=== PATIENT | female | born 1975 | race African-American/Black ===

== ENCOUNTER 2021-09-14 11:31 | Outpatient (REF) | payer OTHER, SELFPAY ==
[2021-09-14 12:47] LABS: MANUAL DIFF FLAG NO
[2021-09-14 13:22] LABS: Basophils Percent Auto 0.6 % (0-2); Eosinophils Absolute Auto 0.1 X10*3/uL (0.0-0.4); Eosinophils Percent Auto 2.4 % (0-4); Hemoglobin 13.5 g/dl (12.0-16.0); Lymphocytes Absolute Auto 1.5 X10*3/uL (1.2-4.9); Lymphocytes Percent Auto 45.7 % (20-40); Mean Corpuscular HGB Conc 32.1 g/dl (31.0-35.0); Mean Corpuscular Hemoglobin 27.7 pg (27.0-33.0); Mean Corpuscular Volume 86.1 fL (80.0-98.0); Mean Platelet Volume 10.2 fL (9.4-12.3); Monocytes Absolute Auto 0.3 X10*3/uL (0.1-1.2); Monocytes Percent Auto 9.2 % (2-11); Neutrophils Absolute Auto 1.4 x10*3/uL (2.0-8.3); Neutrophils Percent Auto 42.1 % (45-73); Platelet Count 261 X10*3/uL (160-400); Red Blood Count 4.88 X10*6/uL (4.20-5.50); White Blood Count 3.4 X10*3/uL (4.8-10.8)
[2021-09-14 13:32] LABS: Estimated Average Glucose 94 mg/dL; Hemoglobin A1c % 4.9 %
[2021-09-14 13:35] LABS: Anion Gap 8 (12-20); Blood Urea Nitrogen 10 mg/dL (9-16); C Reactive Protein 0.33 mg/dL (< or = 0.50); Calcium 9.2 mg/dL (8.4-10.2); Carbon Dioxide 27 mmol/L (22-29); Chloride 111 mmol/L (96-108); Cholesterol 129 mg/dL; Estimated Glomerular Filt Rate 52; Glucose Random 91 mg/dL (60-115); HDL Cholesterol 58 mg/dL; Iron 119 mcg/dL (30-160); LDL Cholesterol Calculated 53 mg/dl; Percent Iron Saturation 45 % (15-50); Potassium 4.2 mmol/L (3.3-5.1); Sodium 142 mmol/L (135-145); Total Iron Binding Capacity 263 mcg/dL (228-428); Triglycerides 93 mg/dL; Unsaturated Iron Binding 144 ug/dL
[2021-09-14 13:54] LABS: TSH reflex Free T4 1.04 uIU/mL (0.32-4.0); Vitamin D 25-OH Total 9.9 ng/mL (>30)
[2021-09-14 14:15] LABS: Vitamin B12 599 pg/mL (200-900)
[2021-09-14 14:27] LABS: Ferritin 172 ng/mL (10-250)
[2021-09-15 13:07] LABS: Calcium (PTHI) 8.6 mg/dL (8.6-10.2); PTHI 63 pg/mL (14-64)
[2021-09-18 00:01] LABS: Zinc 77 mcg/dL (60-130)
[2021-09-20 16:56] LABS: Vitamin A 39 mcg/dL (38-98)
== END 2021-09-14 11:32 | disposition home or self-care (01) ==
LOC: HO.LAB 11:31
PROVIDERS: PCP Internal Medicine; Referring Provider Internal Medicine; Visit Provider Physician Assistant Surgical
DX: E66.9 Obesity, unspecified (principal); D72.819 Decreased white blood cell count, unspecified; F17.210 Nicotine dependence, cigarettes, uncomplicated; Z68.41 Body mass index [BMI] 40.0-44.9, adult; Z90.3 Acquired absence of stomach [part of]; Z98.84 Bariatric surgery status
CPT/HCPCS: 36415; 80048; 80061; 82306; 82607; 82728; 82746; 83036; 83540; 83970; 84425; 84443; 84590; 84630; 85025; 86140; 99212

== ENCOUNTER → 2021-10-26 07:55 | Outpatient (BNVA) | payer OTHER, SELFPAY | PROVIDERS: PCP Internal Medicine; Visit Provider Physician Assistant Surgical | DX: E66.9 Obesity, unspecified (principal); Z98.84 Bariatric surgery status | CPT/HCPCS: Q3014 ==

== ENCOUNTER 2022-05-10 15:01 | Emergency (ER) | payer OTHER, SELFPAY ==
[2022-05-10 16:37] VITALS: BP 130/109; PULSE 93; RESP 20; TEMP 39.3; O2SAT 96; BMI 35.2
[2022-05-10 17:04] LABS: Basophils Percent Auto 0.2 % (0-2); Eosinophils Percent Auto 0.2 % (0-4); Hematocrit 39.9 % (37.0-47.0); Hemoglobin 13.2 g/dl (12.0-16.0); Imm Gran Abs Auto 0.01 X10*3/uL (0.00-0.03); Imm Gran Pct Auto 0.2 % (0.0-0.4); Lymphocytes Absolute Auto 1.1 X10*3/uL (1.2-4.9); Lymphocytes Percent Auto 23.9 % (20-40); MANUAL DIFF FLAG SCAN; Mean Corpuscular HGB Conc 33.1 g/dl (31.0-35.0); Mean Corpuscular Hemoglobin 27.5 pg (27.0-33.0); Mean Corpuscular Volume 83.1 fL (80.0-98.0); Mean Platelet Volume 9.7 fL (9.4-12.3); Monocytes Absolute Auto 0.4 X10*3/uL (0.1-1.2); Monocytes Percent Auto 9.1 % (2-11); Neutrophils Percent Auto 66.4 % (45-73); Platelet Count 206 X10*3/uL (160-400); Red Cell Distribution Width 13.3 % (11.0-16.0); SCAN SMEAR FLAG 1; White Blood Count 4.5 X10*3/uL (4.8-10.8)
[2022-05-10 17:17] LABS: Alanine Aminotransferase 16 U/L (0-31); Albumin Level 3.8 g/dL (3.5-5.0); Alkaline Phosphatase 76 U/L (39-117); Anion Gap 16 (12-20); Aspartate Amino Transferase 27 U/L (5-31); Bilirubin Total 0.3 mg/dL (0.0-1.0); Blood Urea Nitrogen 9 mg/dL (9-16); Calcium 8.2 mg/dL (8.4-10.2); Carbon Dioxide 24 mmol/L (22-29); Chloride 101 mmol/L (96-108); Creatinine Clr Calc Pharmacy 81.3; Estimated Glomerular Filt Rate > 60; Glucose Random 82 mg/dL (60-115); Potassium 3.6 mmol/L (3.3-5.1); Sodium 137 mmol/L (135-145); Total Protein 6.9 g/dL (6.5-8.0)
[2022-05-10 17:23] LABS: SLIDE REVIEW VERIFIED
[2022-05-10 17:47] VITALS: TEMP 39.2
[2022-05-10] MEDS: Acetaminophen 325 MG TABLET 975 MG PO (17:48)
[2022-05-10 17:52] LABS: C Reactive Protein 21.45 mg/dL (< or = 0.50)
--- NOTE | 2022-05-10 17:57 | ED_ITS ---
HPI - General Adult General Chief complaint: General Medical Stated complaint: bumps going down from head to spine? Time Seen by Provider: 05/10/22 17:34 Source: patient and old records reviewed Mode of arrival: ambulatory Limitations: no limitations History of Present Illness HPI narrative: 46 yo female with history of obesity s/p gastric sleeve who presents to the ER for evaluation of 5 days of diffuse lymph node swelling, body aches, headaches and feeling unwell. She reports on 05/06 she woke up with diffuse body aches after moving her refrigerator up a flight up stairs the day before. She states she 1st felt swollen lymph nodes in her bilateral underarms and they have been spreading since. She has had subjective fevers, chills, headaches, and developed a raised red rash on her right lower leg. She also developed dysuria and can feel a swollen LN inside of her vagina. She went to [facility] ER on 05/08 where she had an extensive workup including CT chest, abd, pelvis that only showed axillary lymphadenopathy and small pleural effusions. She had CRP of 8 with negative hepatits panel, mono test, HIV test, and unremarkable basic labs, normal lactic acid. Rheumatology labs were sent as well including CHIARA, ANCA, anti-DNA. Blood cultures were sent. She was ultimately discharged home with plans to follow up with her PCP. She reports she continues to feel unwell and is now nauseated and vomiting. She is sleeping much more than usual but has a hard time getting comfortable. She reports painful bumps all over her scalp as well. No known sick contacts, no recent travel. Her significant other works at a tobacco farm and she sits on the porch there but does not spend a lot of time outside. She is sexually active with him only, last time was over 1 week ago. He has no similar symptoms. She denies vaginal discharge but had some painless vaginal bleeding after moving the fridge. She has a history of fibroids and is s/p ablation. MD complaint: painful lymph nodes Onset (ago): day(s) (5) Location: head, face, neck, chest, back, genitals, buttocks, right and lower extremity Radiation: extremity Severity: severe Quality: aching Pain Consistency: constant Relieving factors: none Exacerbating factors: none Associated symptoms: fever/chills, headaches, loss of appetite, malaise, nausea/vomiting and weakness Treatments prior to arrival: none Related Data Previous Rx's Medication Instructions Recorded cholecalciferol (vitamin D3) 125 250 mcg PO DAILY #60 caps 09/14/21 mcg (5,000 unit) capsule doxycycline monohydrate 100 mg 100 mg PO Q12H 14 days #28 caps 05/10/22 capsule Allergies Allergy/AdvReac Type Severity Reaction Status Date / Time No Known Allergies Allergy Verified 05/10/22 16:36 [No Known Allergies*] Review of Systems Review of Systems: Constitutional: + Fever, + Chills ENT/Mouth: + sore throat, No Rhinorrhea, No Swallowing Difficulty Eyes: No Eye Pain, No Swelling, No Redness Cardiovascular: No Chest Pain, No SOB, No Orthopnea, No Edema Respiratory: No Cough, No Sputum, No Wheezing, No dyspnea Gastrointestinal: + Nausea, + Vomiting, No Diarrhea, No abdominal Pain, No Hematochezia, No Melena Genitourinary: + Dysuria, No Urinary Frequency, No Hematuria, +genital lesions Musculoskeletal: + joint pain, + Myalgias Skin: + Skin Lesions, + rash Neuro: + Weakness, No Numbness, No Dizziness, + Headache Psych: + Anxiety/Panic, No Depression Heme/Lymph: No Bruising, + Lymphadenopathy Endocrine: No Polyuria, No Polydipsia PMFSH Past Medical History Surgical History (Updated 09/14/21 @ 11:52 by ABIGAIL Miller) History of sleeve gastrectomy Family History Family History (Updated 09/14/21 @ 11:50 by Edin Renae Tru) Mother No problems noted. Father No problems noted. Brother No problems noted. Sister No problems noted. Daughter No problems noted. Daughter No problems noted. Daughter No problems noted. Social History Social History (Updated 09/14/21 @ 11:50 by Edin Renae Tru) Alcohol intake: current Alcohol intake frequency: holidays/special occasions only Patient Tobacco Use Status: Current everyday Tobacco user Advance Directives: No Advance Directives Information Provided: No Physical Exam ED Vital Signs: Vital Signs - 24 hr 05/10/22 16:37 05/10/22 17:47 05/10/22 20:19 Temperature 102.8 F H 102.6 F H 98.4 F Pulse Rate 93 Respiratory Rate 20 Blood Pressure 130/109 H Pulse Oximetry 96 Oxygen Delivery Method Room Air 05/10/22 22:12 Temperature 98.4 F Pulse Rate 72 Respiratory Rate 16 Blood Pressure 137/93 H Pulse Oximetry 95 Oxygen Delivery Method BMI result Body Mass Index 35.2 Appearance: Alert middle ages woman laying on the stretcher. Oriented X3. No acute distress. Head: multiple small, erythematous tender lesions on the scalp and occipital area Eyes: Pupils equal, round and reactive to light. Sclera nonicteric ENT: Pharynx normal. Moist mucus membranes no oral lesions. Neck: Normal inspection. Neck supple. Tender lymphadenopathy in the submandibular area, ox occipital area and preauricular area. CVS: Normal heart rate and rhythm. Pulses normal. Respiratory: No respiratory distress. Breath sounds normal. Abdomen: Obese, well-healed surgical scars throughout the abdomen consistent with prior gastric sleeve. Soft and nontender. +BS x4 Skin: Skin warm and dry. Normal skin color. Normal skin turgor. No rashes. Extremities: Right lower extremity with erythematous, slightly raised and tender, blanching lesions consistent with erythema nodosum. No inguinal lymphadenopathy. Bilateral axillary lymphadenopathy noted, tender to touch. Neuro: Oriented X 3. No motor deficit. No sensory deficit. Grossly normal, nonfocal cranial nerves 2-12 intact Course Course Course Narrative: 46-year-old female presenting to the ER for evaluation of body aches, headaches, lymphadenopathy and fevers for the last 5 days. She had extensive workup at [facility] 2 days ago and was ultimately discharged. She is having ongoing symptoms. On arrival to the ER patient is febrile to 102.8. She is nontoxic appearing. She was given Tylenol and then shortly thereafter vomited. On examination she has a nontender abdomen, lungs are clear. She has tender adenopathy in her axillary area as well as submandibular, occipital and preauricular areas. Rash on her ma is consistent with erythema nodosum which is nonspecific, could be infectious or rheumatologic. She also may have lesions on the soles of her feet that could indicate infectious disease such as syphilis. Case was discussed with - he is recommending full tick panel, check for syphilis, CT/NG. Will empirically treat with intramuscular penicillin G, oral doxycycline. Will medicate with IV Toradol for her fever and headache, will give her IV fluids and a p.o. trial. Reevaluation(s) Reevaluation #1: Her labs are unremarkable. She has chronic leukopenia. Her platelets and LFTs are now normal. Imaging from [facility] has been reviewed, CT scans only showing small bilateral pleural effusions and bilateral axillary lymphadenopathy. An extensive rheumatologic workup was initiated there. Spoke with the lab, syphilis testing only done on Wednesdays and Fridays. Will empirically treat with IM Bicillin. She was also given a dose of oral doxycycline. Will plan to treat for a 2 week course. Patient is now afebrile. She is tolerating p.o.. At this time she is stable for discharge home with supportive care and follow-up with Infectious Disease. She will also follow-up with her PCP. Return precautions were discussed. Stable for discharge home with close outpatient follow-up. Medical Decision Making Lab Data Result diagrams: 05/10/22 16:52 05/10/22 16:52 Labs: Lab Results 05/10/22 05/10/22 05/10/22 Range/Units 16:52 16:52 16:52 WBC 4.5 L (4.8-10.8) X10*3/uL RBC 4.80 (4.20-5.50) X10*6/uL Hgb 13.2 (12.0-16.0) g/dl Hct 39.9 (37.0-47.0) % MCV 83.1 (80.0-98.0) fL MCH 27.5 (27.0-33.0) pg MCHC 33.1 (31.0-35.0) g/dl RDW 13.3 (11.0-16.0) % Plt Count 206 (160-400) X10*3/uL MPV 9.7 (9.4-12.3) fL Immature Gran % (Auto) 0.2 (0.0-0.4) % Neut % (Auto) 66.4 (45-73) % Lymph % (Auto) 23.9 (20-40) % [place] % (Auto) 9.1 (2-11) % Eos % (Auto) 0.2 (0-4) % Baso % (Auto) 0.2 (0-2) % Lymph # (Auto) 1.1 L (1.2-4.9) X10*3/uL [place] # (Auto) 0.4 (0.1-1.2) X10*3/uL Eos # (Auto) 0.0 (0.0-0.4) X10*3/uL Baso # (Auto) 0.0 (0.0-0.2) X10*3/uL Abs Immat Gran (auto) 0.01 (0.00-0.03) X10*3/uL Absolute Neuts (auto) 3.0 (2.0-8.3) x10*3/uL Absolute Nucleated RBC 0.000 (0.0-0.012) X10*3/uL Nucleated RBC % (auto) 0.0 (0.0-0.2) /100WBC Smear Tech's Comments VERIFIED ESR 51 H (0-20) MM/HR Sodium 137 (135-145) mmol/L Potassium 3.6 (3.3-5.1) mmol/L Chloride 101 (96-108) mmol/L Carbon Dioxide 24 (22-29) mmol/L Anion Gap 16 (12-20) BUN 9 (9-16) mg/dL Creatinine 0.80 (0.5-1.4) mg/dL Estim Creat Clear Calc 81.3 Estimated GFR > 60 Random Glucose 82 (60-115) mg/dL Lactic Acid (0.5-2.0) mmol/L Calcium 8.2 L D (8.4-10.2) mg/dL Total Bilirubin 0.3 (0.0-1.0) mg/dL AST 27 (5-31) U/L ALT 16 (0-31) U/L Alkaline Phosphatase 76 (39-117) U/L C-Reactive Protein 21.45 H (< or = 0.50) mg/dL Total Protein 6.9 (6.5-8.0) g/dL Albumin 3.8 (3.5-5.0) g/dL Urine Color Urine Appearance Urine pH (5.0-8.0) Ur Specific [place] (1.005-1.025) Urine Protein (Neg-Trace) mg/dL Urine Glucose (UA) (Negative) mg/dL Urine Ketones (Negative) mg/dL Urine Blood (Negative) Urine Nitrite (Negative) Ur Leukocyte Esterase (Negative) Urine RBC (0-2) /HPF Urine WBC (0-5) /HPF Ur Squamous Epith Cells (0-2) /HPF Urine Bacteria (None Seen) Hyaline Casts (0-2) /LPF 05/10/22 05/10/22 Range/Units 18:54 20:12 WBC (4.8-10.8) X10*3/uL RBC (4.20-5.50) X10*6/uL Hgb (12.0-16.0) g/dl Hct (37.0-47.0) % MCV (80.0-98.0) fL MCH (27.0-33.0) pg MCHC (31.0-35.0) g/dl RDW (11.0-16.0) % Plt Count (160-400) X10*3/uL MPV (9.4-12.3) fL Immature Gran % (Auto) (0.0-0.4) % Neut % (Auto) (45-73) % Lymph % (Auto) (20-40) % [place] % (Auto) (2-11) % Eos % (Auto) (0-4) % Baso % (Auto) (0-2) % Lymph # (Auto) (1.2-4.9) X10*3/uL [place] # (Auto) (0.1-1.2) X10*3/uL Eos # (Auto) (0.0-0.4) X10*3/uL Baso # (Auto) (0.0-0.2) X10*3/uL Abs Immat Gran (auto) (0.00-0.03) X10*3/uL Absolute Neuts (auto) (2.0-8.3) x10*3/uL Absolute Nucleated RBC (0.0-0.012) X10*3/uL Nucleated RBC % (auto) (0.0-0.2) /100WBC Smear Tech's Comments ESR (0-20) MM/HR Sodium (135-145) mmol/L Potassium (3.3-5.1) mmol/L Chloride (96-108) mmol/L Carbon Dioxide (22-29) mmol/L Anion Gap (12-20) BUN (9-16) mg/dL Creatinine (0.5-1.4) mg/dL Estim Creat Clear Calc Estimated GFR Random Glucose (60-115) mg/dL Lactic Acid 0.6 (0.5-2.0) mmol/L Calcium (8.4-10.2) mg/dL Total Bilirubin (0.0-1.0) mg/dL AST (5-31) U/L ALT (0-31) U/L Alkaline Phosphatase (39-117) U/L C-Reactive Protein (< or = 0.50) mg/dL Total Protein (6.5-8.0) g/dL Albumin (3.5-5.0) g/dL Urine Color Yellow Urine Appearance Clear Urine pH 6.0 (5.0-8.0) Ur Specific [place] 1.025 (1.005-1.025) Urine Protein 30 (1+) H (Neg-Trace) mg/dL Urine Glucose (UA) Negative (Negative) mg/dL Urine Ketones >=80 (Negative) mg/dL Urine Blood Negative (Negative) Urine Nitrite Negative (Negative) Ur Leukocyte Esterase Negative (Negative) Urine RBC 3-5 H (0-2) /HPF Urine WBC 0-5 (0-5) /HPF Ur Squamous Epith Cells 3-5 (0-2) /HPF Urine Bacteria Trace (None Seen) Hyaline Casts 0-2 (0-2) /LPF Discharge Plan Discharge Clinical Impression: Erythema nodosum, Lymphadenopathy, Fever Patient Disposition: Home, Self-Care Instructions: Fever in Adults (ED), Lymphadenopathy (ED) Additional Instructions: Your lab workup today showed increase in nonspecific inflammatory markers. There was no obvious source of infection that was identified. There are many causes for enlarged lymph nodes in the rash on your lower leg. This could be infectious or rheumatologic. You had the start of her rheumatologic workup at [facility] Emergency Department. Recommend calling them for the results. Recommend following up with our infectious disease doctor, call her office tomorrow to arrange an appointment. Recommend taking alternating doses of Motrin and Tylenol to help with pain and fevers. Stick to a bland diet wire not feeling well. Rest and drink plenty of fluids. Take the prescribed antibiotic for possible tick-borne illness. Stay out of the sun while you're on this antibiotic. If any of your tick panels are positive we will call you. If you develop new or worsening symptoms call 911 or come back to the ER for further evaluation. Prescriptions: New doxycycline monohydrate 100 mg capsule 100 mg PO Q12H 14 Days Qty: 28 0RF No Action cholecalciferol (vitamin D3) 125 mcg (5,000 unit) capsule 250 mcg PO DAILY Qty: 60 3RF Referrals: Margot Manuel MD [Physician] - (Lymphadenopathy, fever)
[2022-05-10 18:32] LABS: Erythrocyte Sedimentation Rate 51 MM/HR (0-20)
[2022-05-10] MEDS: 0.9 % Sodium Chloride 1,000 ML 999 ML IVCONT (19:03)
[2022-05-10] MEDS: Ketorolac Tromethamine 30 MG/ML VIAL IVPUSH (19:16)
[2022-05-10] MEDS: ondansetron HCL 4 MG/2 ML VIAL IVPUSH (19:16)
[2022-05-10 19:22] LABS: Lactic Acid 0.6 mmol/L (0.5-2.0)
[2022-05-10 20:19] VITALS: TEMP 36.9
[2022-05-10 20:23] LABS: Appearance Urine Clear; Color Urine Yellow; Glucose Urine UA Negative (Negative); Leukocyte Esterase Urine Negative (Negative); Nitrite Urine Negative (Negative); Specific Gravity - Urine 1.025 (1.005-1.025); Urine Blood Negative (Negative); Urine Ketones >=80 mg/dL (Negative); Urine Protein 30 (1+) mg/dL (Neg-Trace)
[2022-05-10 20:29] LABS: WBC Urine 0-5 /HPF (0-5)
[2022-05-10 20:30] LABS: Bacteria Urine Trace (None Seen)
[2022-05-10 20:32] LABS: Hyaline Casts Urine 0-2 /LPF (0-2)
[2022-05-10] MEDS: Penicillin G Benzathine 2,400,000 UNIT/4 ML SYRINGE 2400000 UNIT IM (21:52)
[2022-05-10 22:12] VITALS: BP 137/93; PULSE 72; RESP 16; TEMP 36.9; O2SAT 95
[2022-05-11 04:33] LABS: HIV AB/AG Nonreactive (Nonreactive); HIV Num 1 0.07 S/CO (0.00-0.99)
[2022-05-11 05:11] LABS: CT PCR NOT DETECTED (Not Detect.); NG PCR NOT DETECTED (Not Detect.)
[2022-05-11 06:14] LABS: Syphilis Screen Nonreactive (Nonreactive)
[2022-05-12 21:10] LABS: Lyme Abs Screen <0.90 index
[2022-05-17 13:55] LABS: A. Phagocytophilum Ab IgG <1:64 (<1:64); A. Phagocytophilum Ab IgM <1:20 (<1:20); E. Chaffeensis Ab IgG <1:64 (<1:64); E. Chaffeensis Ab IgM <1:20 (<1:20)
[2022-06-05 00:13] LABS: Rocky Mtn. Spot. Fever IgG Ab Not Detected (Not Detected); Rocky Mtn.Spot. Fever IgM Ab Not Detected (Not Detected)
== END 2022-05-10 22:20 | disposition home or self-care (01) ==
PROVIDERS: Physician Assistant; Emergency Provider Internal Medicine
DX: L52 Erythema nodosum (principal); R50.9 Fever, unspecified; M79.10 Myalgia, unspecified site; R51.9 Headache, unspecified; D72.819 Decreased white blood cell count, unspecified; R11.2 Nausea with vomiting, unspecified; Z98.84 Bariatric surgery status; Z79.899 Other long term (current) drug therapy
CPT/HCPCS: 36415; 80053; 81001; 83605; 85025; 85652; 86140; 86617; 86618; 86666; 86757; 86780; 87040; 87389; 87491; 87591; 96361; 96372; 96374; 96375; 99284; J0561; J1885; J2405

== ENCOUNTER → 2022-05-17 15:02 | Outpatient (BNVA) | payer OTHER, SELFPAY | PROVIDERS: Visit Provider Internal Medicine | DX: I88.1 Chronic lymphadenitis, except mesenteric (principal) | CPT/HCPCS: 99202 ==

== ENCOUNTER → 2022-08-31 09:06 | Outpatient (BNVA) | payer OTHER, SELFPAY | PROVIDERS: Visit Provider Student in an Organized Health Care Education/Training Program | DX: I88.1 Chronic lymphadenitis, except mesenteric (principal); Z98.84 Bariatric surgery status | CPT/HCPCS: 99202 ==

== ENCOUNTER 2022-08-31 10:15 | Outpatient (REF) | payer OTHER, SELFPAY ==
[2022-08-31 13:44] LABS: Appearance Urine Cloudy; Color Urine Yellow; Glucose Urine UA Negative (Negative); Leukocyte Esterase Urine Small (1+) (Negative); Nitrite Urine Negative (Negative); Specific Gravity - Urine 1.025 (1.005-1.025); UMIC TRIGGER UA YES; Urine Blood Negative (Negative); Urine Ketones Negative (Negative); Urine Protein Negative (Neg-Trace)
[2022-08-31 13:50] LABS: Bacteria Urine 1+ (None Seen); Hyaline Casts Urine 0-2 /LPF (0-2); RBC Urine 0-2 /HPF (0-2)
[2022-08-31 14:05] LABS: Basophils Percent Auto 0.4 % (0-2); Eosinophils Percent Auto 1.3 % (0-4); Hematocrit 43.3 % (37.0-47.0); Hemoglobin 14.1 g/dl (12.0-16.0); Lymphocytes Absolute Auto 0.6 X10*3/uL (1.2-4.9); Lymphocytes Percent Auto 26.6 % (20-40); MANUAL DIFF FLAG SCAN; Mean Corpuscular HGB Conc 32.6 g/dl (31.0-35.0); Mean Corpuscular Hemoglobin 28.1 pg (27.0-33.0); Mean Corpuscular Volume 86.4 fL (80.0-98.0); Mean Platelet Volume 10.9 fL (9.4-12.3); Monocytes Absolute Auto 0.3 X10*3/uL (0.1-1.2); Monocytes Percent Auto 13.1 % (2-11); Neutrophils Absolute Auto 1.4 x10*3/uL (2.0-8.3); Neutrophils Percent Auto 58.6 % (45-73); Platelet Count 209 X10*3/uL (160-400); Red Blood Count 5.01 X10*6/uL (4.20-5.50); Red Cell Distribution Width 13.1 % (11.0-16.0); SCAN SMEAR FLAG 1; White Blood Count 2.4 X10*3/uL (4.8-10.8)
[2022-08-31 14:23] LABS: SLIDE REVIEW VERIFIED
[2022-08-31 14:28] LABS: Creatinine Urine 213.43 mg/dL; Protein/Creatinine Ratio, Ur 0.07 (<0.2); Total Protein Urine Random 14 mg/dL (<12)
[2022-08-31 14:40] LABS: Estimated Average Glucose 94 mg/dL; Hemoglobin A1c % 4.9 %
[2022-08-31 14:45] LABS: Erythrocyte Sedimentation Rate 14 MM/HR (0-20)
[2022-08-31 15:07] LABS: Alanine Aminotransferase 13 U/L (0-31); Albumin Level 4.1 g/dL (3.5-5.0); Alkaline Phosphatase 99 U/L (39-117); Anion Gap 10 (12-20); Aspartate Amino Transferase 20 U/L (5-31); Bilirubin Total 0.5 mg/dL (0.0-1.0); Blood Urea Nitrogen 12 mg/dL (9-16); C Reactive Protein 0.66 mg/dL (< or = 0.50); Calcium 9.3 mg/dL (8.4-10.2); Carbon Dioxide 28 mmol/L (22-29); Chloride 106 mmol/L (96-108); Estimated Glomerular Filt Rate > 60; Glucose Random 109 mg/dL (60-115); Lactate Dehydrogenase 260 U/L (122-220); Rheumatoid Factor < 13.0 IU/mL (<15.0); Sodium 140 mmol/L (135-145); Thyroid Stimulating Hormone 0.83 uIU/mL (0.32-4.0); Total Protein 6.9 g/dL (6.5-8.0)
[2022-09-01 05:26] LABS: HBS Num1 1.27 mIU/mL (0-7.99); HBc Num1 0.05 S/CO (0.00-0.79); HBsAGNum1 0.32 S/CO (0.00-0.99); Hepatitis B Core Antibody Nonreactive (Nonreactive); Hepatitis B Surface Antigen Negative (Negative); ~HepC Num1 0.09 S/CO (0.00-0.79); ~Hepatitis B Surface Antibody NONREACTIVE (Nonreactive); ~Hepatitis C Antibody Nonreactive (Nonreactive)
[2022-09-01 11:18] LABS: Complement C3 133 mg/dL (83-193)
[2022-09-01 13:23] LABS: Cardiolipin IgG Ab <2.0 GPL-U/mL
[2022-09-02 08:31] LABS: Hepatitis A Antibody IgM 0.11 Index (0-0.79); ~Hepatitis A Antibody IgM Nonreactive (Nonreactive)
[2022-09-02 11:34] LABS: IgA 266 mg/dL (47-310); IgG 1303 mg/dL (600-1640); IgM 80 mg/dL (50-300)
[2022-09-02 14:43] LABS: Anti Nuclear Antibody Screen NEGATIVE (NEGATIVE)
[2022-09-02 23:18] LABS: PES - Abn Protein Band 1 <0.2 g/dL (NONE DETECTED); Prot Elec - Albumin 3.9 g/dL (3.8-4.8); Prot Elec - Alpha1 0.3 g/dL (0.2-0.3); Prot Elec - Alpha2 0.8 g/dL (0.5-0.9); Prot Elec - Beta 1 0.4 g/dL (0.4-0.6); Prot Elec - Beta 2 0.4 g/dL (0.2-0.5); Prot Elec - Gamma 1.1 g/dL (0.8-1.7); Prot Elec - Total Protein 6.9 g/dL (6.1-8.1)
[2022-09-03 08:28] LABS: TS Negative Control Passed; TS Panel A 0; TS Panel B 0; TS Positive Control Passed; TSpotTB Negative (Negative)
[2022-09-04 15:18] LABS: Angiotensin Converting Enzyme 35.9 U/L (9-67)
[2022-09-04 20:33] LABS: Beta-2 Glycoprotein IgA <2.0 U/mL (<20.0); Beta-2 Glycoprotein IgG <2.0 U/mL (<20.0); Beta-2 Glycoprotein IgM 3.1 U/mL (<20.0)
[2022-09-05 00:44] LABS: VITAMIN D (1,25 OH) D3 68 pg/mL; Vit D (1,25-Dihydroxy) Total 68 pg/mL (18-72); Vitamin D (1,25 OH) D2 <8 pg/mL
[2022-09-05 09:24] LABS: Anti DNA DS Antibody <1 IU/mL; Antibody to SS-A Antigen <1.0 NEG AI (<1.0 NEG); Antibody to SS-B Antigen <1.0 NEG AI (<1.0 NEG); Myeloperoxidase Antibody <1.0 AI; Proteinase 3 PR3 Antibodies <1.0 AI; SM/Ribonucleoprotein Ab <1.0 NEG AI (<1.0 NEG); Scleroderma 70 Antibody 2.0 POS AI (<1.0 NEG); Smith Protein <1.0 NEG AI (<1.0 NEG)
[2022-09-05 16:09] LABS: Vitamin D 25-OH, D2 <4 ng/mL; Vitamin D 25-OH, D3 16 ng/mL; Vitamin D 25-OH, Total 16 ng/mL (30-100)
[2022-09-06 15:28] LABS: DNAds, Crithidia Antibody Negative (Negative)
[2022-09-11 07:33] LABS: Cardiolipin IgM Ab 2.2 MPL-U/mL; Cyclic Citrullinated Peptide <16 UNITS; Lysozyme, Serum 4.5 mcg/mL (5.0-11.0)
== END 2022-08-31 10:16 | disposition home or self-care (01) ==
LOC: HO.10HDL 10:15
PROVIDERS: Visit Provider Student in an Organized Health Care Education/Training Program
DX: D86.9 Sarcoidosis, unspecified (principal); I42.9 Cardiomyopathy, unspecified; R10.9 Unspecified abdominal pain; I88.1 Chronic lymphadenitis, except mesenteric; M25.531 Pain in right wrist; R73.9 Hyperglycemia, unspecified; M32.9 Systemic lupus erythematosus, unspecified; Z11.7 Encounter for testing for latent tuberculosis infection; Z13.21 Encounter for screening for nutritional disorder; Z11.59 Encounter for screening for other viral diseases; R59.1 Generalized enlarged lymph nodes; R50.9 Fever, unspecified; R53.83 Other fatigue; D72.819 Decreased white blood cell count, unspecified
CPT/HCPCS: 36415; 80053; 81001; 82085; 82164; 82306; 82550; 82652; 82784; 83036; 83615; 84156; 84165; 84443; 85025; 85549; 85652; 86021; 86038; 86039; 86140; 86146; 86147; 86160; 86200; 86225; 86235; 86255; 86334; 86431; 86481; 86704; 86706; 86709; 86803; 87340

== ENCOUNTER → 2022-10-03 13:06 | Outpatient (REF) | payer OTHER, SELFPAY ==
--- NOTE | 2022-10-03 13:14 | CA_ITS ---
Transthoracic Echocardiogram Patient (Last, First, Middle): Honey Carter, Gender: Female Date of : 1975 Age: 47 Procedure Date: 10/03/2022 Procedure Type: Transthoracic Echocardiogram Location: OP Height: 152.4 cm Weight: 83.92 kg BSA: 1.81 m2 Heart Rate: 73 bpm BP: 110 / 80 mmHg Photographic Hand Developer: SHANE Referring MD: Lucy Hendrix MD Symptoms: I42.9 - Cardiomyopathy, unspecified Study Quality: Adequate ECG Rhythm: Sinus Conclusions: - The left ventricular systolic function is low normal. The visually estimated ejection fraction is between 50-55%. - Mildly increased right ventricular cavity size. - No obvious valvular pathology seen on this study. Findings Left Ventricle Normal left ventricular cavity size. There is normal left ventricular wall thickness. The left ventricular systolic function is low normal. The visually estimated ejection fraction is between 50-55%. There is no evidence of regional wall motion abnormalities. Diastolic function is normal for age. Right Ventricle Mildly increased right ventricular cavity size. There is normal right ventricular systolic function. Atria Both atria are normal in size. There is no evidence of interatrial shunt by color Doppler. Aortic Valve There is a normal trileaflet aortic valve. There is no aortic valve stenosis. There is no aortic valve regurgitation. Mitral Valve The mitral valve appears normal. There is no mitral valve regurgitation. There is no mitral valve stenosis. Pulmonic Valve The pulmonic valve is likely normal. Tricuspid Valve Normal tricuspid valve structure. There is trace tricuspid valve regurgitation. There is no evidence of pulmonary hypertension. Great Vessels The asc aorta is normal in size. Venous The inferior vena cava is normal in size and collapses greater than 50% with inspiration. Pericardium/Pleural There is no evidence of pericardial effusion. Prior Study Comparison Changes noted compared to prior study dated: 12/13/2018. Minimal changes, but could also be technical. Recommendations, Care & Conclusions No obvious valvular pathology seen on this study. Measurements 2D Linear Measurements IVSd: 0.98 0.6-0.9/0.6-1.0 cm LVIDd: 4.41 3.9-5.3/4.2-5.9 cm LVIDd Index: 2.44 2.4-3.2/2.2-3.1 cm/m2 LVIDs: 3.24 2.0-3.6 cm LVPWd: 1.01 0.7-1.1 cm LA Diam: 3.50 2.7-3.8/3.0-4.0 cm LAIDs Index: 1.93 1.5-2.3 cm/m2 LV Mass: 183.69 67-162/88-224 g LV Mass Index: 101.49 43-95/49-115 g/m2 LVOT Diam: 2.00 3.0+(-)1.3 cm 2D Systolic Function EF 4C: 53.00 >55% EF 2C: 50.10 >55% EF BiP: 50.50 >55% Mitral Valve MV Pk E: 0.69 MV PK A: 0.72 MV Decel Time: 230.00 E/A: 1.00 E'Lateral: 7.40 E'Medial: 6.20 E/E' Med: 11.20 E/E' Lat: 9.40 PHT: 67.00 MVA PHT: 3.28 Decel Dolores: 3.02 Aortic Valve AoV Pk Celestino: 1.29 AoV Mn Celestino: 0.90 AoV VTI: 0.26 AoV Pk Grad: 7.00 Aov Mn Grad: 4.00 MARILYN Cont.VTI: 2.14 LVOT LVOT Pk Celestino: 0.88 LVOT Mn Celestino: 0.61 LVOT VTI: 0.17 LVOT Pk Grad: 3.00 LVOT Mn Grad: 2.00 LVOT Diam: 2.00 LVOT Area: 3.14 Diastolic Function MV Pk E: 0.69 MV Pk A: 0.72 E/A: 1.00 E'Medial: 6.20 E/E' Med: 11.20 E' Laterial: 7.40 E/E' Lat: 9.40 Right Ventricle TAPSE (mm): 24.20 TVS' Celestino: 13.10 Tricuspid Valve RA Press: 3.00 Great Vessels Aorta Sinus of Valsalva: 2.80 2.0-3.5 cm Ao Asc: 3.00 2.1-3.4 cm Pulmonary Valve PV Pk Celestino: 0.87 Peak PV Grad: 3.00 Updated in Other Vendor System with Status of Final Jesús Norris MD electronically signed on 10/03/2022 4:52:43 PM with status of Final
[2022-10-09 16:34] LABS: Hexagonal Phase Neutralization Negative (Negative); PTT (LAC) Screen 41 sec (<=40)
== END ==
LOC: HO.CARD 13:06
PROVIDERS: Referring Provider Physician Assistant Surgical; Visit Provider Student in an Organized Health Care Education/Training Program
DX: D86.9 Sarcoidosis, unspecified (principal); I42.9 Cardiomyopathy, unspecified
CPT/HCPCS: 36415; 85597; 85613; 85730; 93306

== ENCOUNTER 2022-10-06 09:12 | Outpatient (REF) | payer OTHER, SELFPAY ==
--- NOTE | ~2022-10-06 | US_ITS ---
EXAMINATION: US ABDOMEN COMPLETE CLINICAL INFORMATION: Unspecified abdominal pain. COMPARISON: Ultrasound abdomen complete was elastography 12/13/2018. TECHNIQUE: Real-time imaging of the abdominal viscera. FINDINGS: PANCREAS: The pancreas is homogeneous echotexture without focal lesion. Peripancreatic fat borders are preserved. ABDOMINAL AORTA: The proximal, mid, and distal segments are normal in caliber. INFERIOR VENA CAVA: Visualized portions are normal. LIVER: Normal. The liver is normal in size. The liver contour is normal. Parenchymal echogenicity is normal. No focal hepatic lesion. There is no intrahepatic biliary duct dilatation seen. GALLBLADDER: Normal. The gallbladder is physiologically distended without evidence of stones, sludge, polyps, wall thickening or pericholecystic fluid. COMMON BILE DUCT: Normal in caliber measuring 0.3 cm in diameter. RIGHT KIDNEY: Normal. No hydronephrosis. No renal calculi or focal parenchymal lesions. The kidney measures 10.2 cm in maximum dimension. LEFT KIDNEY: Normal. No hydronephrosis. No renal calculi or focal parenchymal lesions. The kidney measures 11.0 cm in maximum dimension. SPLEEN: Normal. The spleen measures 9.1 cm in maximum dimension. FREE FLUID: None. US/US abdomen complete IMPRESSION: Unremarkable complete abdomen ultrasound.
== END 2022-10-06 09:13 | disposition home or self-care (01) ==
LOC: HO.US 09:12
PROVIDERS: Visit Provider Student in an Organized Health Care Education/Training Program
DX: R10.9 Unspecified abdominal pain (principal)
CPT/HCPCS: 76700

== ENCOUNTER → 2022-11-24 09:29 | Outpatient (BNVA) | payer OTHER, SELFPAY | PROVIDERS: Visit Provider Student in an Organized Health Care Education/Training Program | DX: M70.62 Trochanteric bursitis, left hip (principal); D47.2 Monoclonal gammopathy; I88.1 Chronic lymphadenitis, except mesenteric | CPT/HCPCS: 20610; 99212 ==

== ENCOUNTER → 2022-12-12 14:41 | Outpatient (BNV) | payer OTHER, SELFPAY | PROVIDERS: PCP Internal Medicine; Visit Provider Internal Medicine Medical Oncology | DX: D72.819 Decreased white blood cell count, unspecified (principal); D47.2 Monoclonal gammopathy; R59.0 Localized enlarged lymph nodes | CPT/HCPCS: 99204; 99213 ==

== ENCOUNTER 2023-01-03 13:00 | Outpatient (REF) | payer OTHER, SELFPAY ==
--- NOTE | ~2023-01-03 | US_ITS ---
EXAMINATION: US SOFT TISSUE HEAD/NECK CLINICAL INFORMATION: Cervical adenopathy. COMPARISON: None available. TECHNIQUE: Linear transducer grayscale and color Doppler examination of the bilateral neck. FINDINGS: There are multiple bilateral lymph nodes seen. The largest and most abnormal-appearing are measured. RIGHT NECK: 1. Small lymph node measuring 1.0 x 0.4 x 0.6 cm. There is no central echogenic medulla. 2. 1.4 x 0.3 x 0.6 cm. It has a central echogenic medulla. 3. 2.0 x 0.8 x 1.4 cm. There is absent echogenic medulla. LEFT NECK: 1. A 1.5 x 0.9 x 0.8 cm slightly lobulated appearance and has central echogenic medulla. 2. 1.4 x 0.4 x 0.9 cm has subtle echogenic medulla. 3. 1.9 x 0.4 x 0.8 cm has a central echogenic medulla. 4. 1.9 x 0.7 x 1.0 cm and has central echogenic medulla. It lies in the submandibular space. None of these lymph nodes have increased vascularity. US/US soft tiss head and/or neck IMPRESSION: Bilateral cervical adenopathy, the largest on the left neck measures 1.9 cm and the largest on the right neck measures 2.0 cm. Even though they have benign characteristics such as central echogenic medulla and no increased vascularity, a short-term 6 month follow up should be performed.
== END 2023-01-03 13:01 | disposition home or self-care (01) ==
LOC: HO.US 13:00
PROVIDERS: Visit Provider Internal Medicine Medical Oncology
DX: R59.0 Localized enlarged lymph nodes (principal)
CPT/HCPCS: 76536

== ENCOUNTER → 2023-01-27 11:08 | Outpatient (BNVA) | payer OTHER, SELFPAY | PROVIDERS: PCP Internal Medicine; Visit Provider Student in an Organized Health Care Education/Training Program | DX: I88.1 Chronic lymphadenitis, except mesenteric (principal); D47.2 Monoclonal gammopathy; M70.62 Trochanteric bursitis, left hip | CPT/HCPCS: 99212 ==

== ENCOUNTER 2023-04-12 13:04 | Outpatient (AMB) | payer OTHER, SELFPAY ==
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
[2023-04-12 13:07] VITALS: BP 106/90; PULSE 66; BMI 36.0
== END 2023-04-12 13:36 | disposition home or self-care (01) ==
PROVIDERS: PCP Internal Medicine; Referring Provider Internal Medicine; Visit Provider Internal Medicine
DX: I42.9 Cardiomyopathy, unspecified (principal); D47.2 Monoclonal gammopathy
CPT/HCPCS: 93010; 99204

== ENCOUNTER → 2023-04-12 13:04 | Outpatient (BNVA) | payer OTHER, SELFPAY | PROVIDERS: PCP Internal Medicine; Referring Provider Internal Medicine; Visit Provider Internal Medicine | DX: I42.9 Cardiomyopathy, unspecified (principal); I88.1 Chronic lymphadenitis, except mesenteric; D47.2 Monoclonal gammopathy; F17.210 Nicotine dependence, cigarettes, uncomplicated | CPT/HCPCS: 93005; 99202 ==

== ENCOUNTER 2023-06-05 14:40 | Outpatient (AMB) | payer OTHER, SELFPAY ==
--- NOTE | 2023-06-05 14:41 | A.OFFVIS_ITS ---
Intake Vital Signs 06/05/23 14:42 Height 5 ft Weight 191 lb 12.835 oz BMI 37.5 BP 122/80 Blood Pressure Location Lt brachial Position Sitting Pulse 77 Pulse Source Doppler Pulse Oximetry (%) 98 Oxygen Delivery Method Room Air Intake Visit Reasons: pulm nodule Allergies No Known Allergies [No Known Allergies*] Allergy (Verified 06/05/23 14:46) HPI pulm nodule HPI Details 47-year-old lady, active 30+ pack-year s moker undergoing workup for dyspnea on exertion with her riprap man had a CT coronary arteries that incidentally noted at 3 mm pulmonary nodule in patient was rib referred for evaluation of pulmonary nodules and pulmonary contribution to underlying dyspnea on exertion. Patient denies wheezing, coughing, or sputum production. She does have a dog. 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 Patient denies prior personal or family history of lung disease. [facility] Medical History (Updated 06/05/23 @ 15:18 by Pavan Lees MD) Hiatal hernia Cardiomyopathy Asthma Depression Lymphadenitis, chronic Surgical History History of sleeve gastrectomy Hx of section Hx of hernia repair Hx of tubal ligation Family History Mother Cancer Father Alcohol abuse Substance abuse Brother No problems noted. 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 Review of Systems Const Denies daytime sleepiness, Denies excessive sweating, Denies fatigue, Denies fever(s), Denies lethargy, Denies malaise, Denies night sweats, Denies snoring and Denies weight loss Eyes Denies blurry vision and Denies itchy eyes ENT Denies nasal congestion, Denies post nasal drip, Denies sinus pain, Denies sinus pressure and Denies other ( Thrush) Card Denies chest pain, Denies pedal edema, Denies dyspnea, Denies orthopnea and Denies paroxysmal nocturnal dyspnea Resp Denies cough, Denies hemoptysis, Denies excessive phlegm production, Denies dyspnea, Denies snoring and Denies wheezing GI Denies abdominal pain and Denies heartburn Musc Denies myalgias, Denies arthralgias and Denies joint swelling Skin/Breast Denies rash Neuro Denies memory loss and Denies seizure-like activity Psych Denies abnormal sleep pattern, Denies anxiety and Denies memory loss Endo Denies excessive sweating, Denies fatigue and Denies heat intolerance Dung/Lymph Denies easy bruising Aller/Immun Denies itchy eyes, Denies seasonal rhinorrhea and Denies wheezing Physical Exam Vital Signs: Last Vital Signs Pulse 77 06/05/23 14:42 BP 122/80 06/05/23 14:42 Pulse Ox 98 06/05/23 14:42 Oxygen Delivery Method Room Air 06/05/23 14:42 BMI result Body Mass Index 37.5 Const General: no acute distress and alert Nutritional Appearance: obese Orientation/consciousness: Other orientation findings ( oriented) HEENT Head: Yes atraumatic Eyes General: appearance normal, both eyes and all related structures Sclerae: sclerae normal EOM: EOMs intact bilaterally Neck Neck: Yes supple Lymphatic: no lymphadenopathy noted Resp Effort & Inspection: normal respiratory effort and no use of accessory muscles Auscultation: clear to auscultation bilaterally Cardio Rate: regular rate Rhythm: regular rhythm Heart sounds: no gallops, no murmurs and no rubs Skin General skin exam: other ( warm) Extrem General: No clubbing, No cyanosis and No edema Assessment & Plan Assessment & Plan (1) Pulmonary emphysema: Code(s): J43.9 - Emphysema, unspecified Plan: Likely underlying COPD of unclear severity. Will obtain full PFT for further evaluation. (2) Pulmonary nodules: Code(s): R91.8 - Other nonspecific abnormal finding of lung field Plan: Incidentally noted similar meters pulmonary nodule in 30+ pack-year smoker on CT coronary arteries. Will obtain full CT chest for further evaluation. Orders: Orders CT chest wo IV con Today R91.8 - Other nonspecific abnormal finding of lung field PFT pulmonary function test Today J43.9 - Emphysema, unspecified Coding Level of Care Code New Pt Level 4 (97125) Diagnoses Pulmonary emphysema J43.9 Pulmonary nodules R91.8
[2023-06-05 14:42] VITALS: BP 122/80; PULSE 77; O2SAT 98; BMI 37.5
== END 2023-06-05 15:10 | disposition home or self-care (01) ==
PROVIDERS: PCP Internal Medicine; Visit Provider Internal Medicine Pulmonary Disease
DX: J43.9 Emphysema, unspecified (principal); R91.8 Other nonspecific abnormal finding of lung field
CPT/HCPCS: 99204

== ENCOUNTER → 2023-06-05 14:40 | Outpatient (BNVA) | payer OTHER, SELFPAY | PROVIDERS: PCP Internal Medicine; Visit Provider Internal Medicine Pulmonary Disease | DX: J43.9 Emphysema, unspecified (principal); R91.8 Other nonspecific abnormal finding of lung field; F17.210 Nicotine dependence, cigarettes, uncomplicated | CPT/HCPCS: 99202 ==

== ENCOUNTER 2023-07-17 09:38 | Outpatient (REF) | payer OTHER, SELFPAY ==
--- NOTE | ~2023-07-17 | CT_ITS ---
EXAMINATION: CT CHEST WITHOUT CONTRAST CLINICAL INFORMATION: Abnormal lungs COMPARISON: None available. TECHNIQUE: Multidetector volumetric CT imaging of the chest was done. Axial MIP volume rendering provided. Sagittal and coronal reformatted images were obtained. This CT examination was performed using dose optimization techniques as appropriate, variously including the following: *Automated exposure control *Adjustment of mA and/or kV according to patient size (this includes techniques or standardized protocols for targeted exams where dose is matched to indication/reason for exam; i.e. extremities or head) *Use of iterative reconstruction technique DLP: 131 mGy-cm FINDINGS: DRY CANS BACK TENDER: Unremarkable LUNGS: The lungs are clear with no evidence of inflammation or nodules. MEDIASTINUM: The mediastinum is normal. CORONARY ARTERY CALCIFICATION: None visualized on this study. PLEURA: There is no pleural effusion. No pleural mass or thickening. AXILLA: No lymphadenopathy. UPPER ABDOMEN: Liver is unremarkable. Patient is status post gastric sleeve surgery. Visualized kidneys pancreas spleen are unremarkable. OSSEOUS STRUCTURES: Unremarkable. CT/CT chest wo IV con IMPRESSION: Unremarkable examination. Fleischner guidelines were followed.
== END 2023-07-17 09:39 | disposition home or self-care (01) ==
LOC: HO.CT 09:38
PROVIDERS: PCP Internal Medicine; Visit Provider Internal Medicine Pulmonary Disease
DX: R91.8 Other nonspecific abnormal finding of lung field (principal)
CPT/HCPCS: 71250

== ENCOUNTER 2023-08-29 09:53 | Outpatient (AMB) | payer OTHER, SELFPAY ==
--- NOTE | 2023-08-29 09:58 | MHC.OFFVISWM ---
Intake VS Expanded 08/29/23 10:10 BP 122/82 Blood Pressure Location Rt brachial Blood Pressure Position Sitting Pulse 95 Pulse Source Pulse Oximeter Temp 97.2 F Temperature Source Temporal Artery Scan Pulse Oximetry 97 Oxygen Delivery Method Room Air Height 5 ft Weight 191 lb 3.2 oz BMI 37.3 Body Fat % 43.3 Body Fat Mass 82.6 Fat Free Mass 108.4 Visceral Fat Rating 12.0 Body Water % 40.4 Body Water Mass 77.2 Muscle Mass/Score 103.0 Basal Metabolic Rate/Score 1,515 Intake Visit Reasons: (OV) PO LSG 01/23/2019 Rubber Heel And Sole Press Tender Required: No Allergies No Known Allergies [No Known Allergies*] Allergy (Verified 08/29/23 10:04) Medication List - Last Reconciled 08/29/23 by ABIGAIL Miller albuterol sulfate 90 mcg/actuation (ProAir HFA) 2 puffs inhalation Q6H PRN HPI HPI Comments History of Present Illness Details This?a?46?yo female who is s/p LSG without hiatal hernia repair on?01/23/[address] Lamas. Presents for 4 year 7 month post op visit. Last seen 10/26/21 but had not weighed herself since august 2021. Weight on 09/14/21 was 189.2 pounds with a BMI of 36.9, Weight today is 191.2 pounds with a BMI of 37.3. She she states that since last being seen, 2 and half years ago, she has undergone hiatal hernia repair by Dr. Rodriguez at [facility]. She saw him for complaints of persistent nausea and vomiting with intolerance to food and fluids. After the surgery, she has had some improvement although continues to have intermittent nausea. She does report being able to drink quickly or sip slowly. She has also been followed by Cardiology, Rheumatology and Hematology for multiple underlying medical disorders. She has resumed smoking, approximately 1/2 pack cigarettes per day although is trying to quit. She additionally drinks 2 drinks 2-3 times per month. She states that she wants to quit smoking and drinking. She is not following a particular meal plan but did by a portable meat blender. I would like to restart celebrate 4 in 1 protein shake. Wakes at 6 am, bed at 8 pm Exercise plan: [employer] membership [facility] Medical History Hiatal hernia Cardiomyopathy Asthma Depression Lymphadenitis, chronic Surgical History Hx of hernia repair Hx of tubal ligation Hx of section History of sleeve gastrectomy Family History Mother Cancer Father Alcohol abuse Substance abuse Brother No problems noted. 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 Physical Exam Const General: healthy appearing and no acute distress Resp Effort & Inspection: normal respiratory effort Auscultation: clear to auscultation bilaterally Cardio Rate: regular rate Rhythm: regular rhythm GI Auscultation: normal bowel sounds Extrem General: Yes normal to inspection Assessment & Plan Assessment & Plan (1) Obesity (BMI 30-39.9): Code(s): E66.9 - Obesity, unspecified Plan: Will start anew meal plan using celebrate 4 in 1 protein powder 07:00 to 09:00 Shake 2 scoops in 10 oz unsweetened almond milk or 0 milk 11:00 to 13:00 a celebrate protein bar 15:00 to 17:00 another shake Meal at 18:00 with 7 forks of protein and 7 forks of salad or vegetables 19:00 an apple or half cup of fresh varies. 48-64 oz of water daily. Exercise including 300 calories burned per day at the gym or 2000 calories per week doing cardio. She will return to the office in 4 weeks time in with a goal of 8 lb weight loss. Coding Level of Care Code Est Pt Level 4 (43578) Diagnoses Obesity (BMI 30-39.9) E66.9 Time Spent (min) 40
[2023-08-29 10:10] VITALS: BP 122/82; PULSE 95; TEMP 36.2; O2SAT 97; BMI 37.3
== END 2023-08-29 10:34 | disposition home or self-care (01) ==
PROVIDERS: PCP Internal Medicine; Visit Provider Physician Assistant Surgical
DX: E66.9 Obesity, unspecified (principal)
CPT/HCPCS: 99214

== ENCOUNTER → 2023-08-29 09:53 | Outpatient (BNVA) | payer OTHER, SELFPAY | PROVIDERS: PCP Internal Medicine; Visit Provider Physician Assistant Surgical | DX: E66.9 Obesity, unspecified (principal); Z68.37 Body mass index [BMI] 37.0-37.9, adult | CPT/HCPCS: 99212 ==

== ENCOUNTER 2023-12-18 15:33 | Outpatient (REF) | payer OTHER, SELFPAY ==
--- NOTE | ~2023-12-18 | US_ITS ---
EXAMINATION: US SOFT TISSUE NECK CLINICAL INFORMATION: Cervical adenopathy. COMPARISON: Ultrasound soft tissue head/neck 01/03/2023. TECHNIQUE: Ultrasound of the neck soft tissues is performed with high- frequency shanks-scale imaging and color Doppler. FINDINGS: Redemonstration of multiple bilateral nodes with examples are as follows: RIGHT NECK: 0.9 x 0.3 x 0.7 cm level II node and 1.2 x 0.4 x 0.6 cm level IV node demonstrate echogenic cassi with prominent cortices. Previous exam demonstrated a right cervical nodes measuring 1.0 x 0.4 x 0.6 cm, 1.4 x 0.8 x 0.6 cm, and 2.0 x 0.8 x 1.4 cm. LEFT NECK: 0.9 x 0.3 x 0.7 cm level II node, 1.3 x 0.5 x 0.8 cm level III node, and 1.8 x 0.4 x 0.8 cm level IV node demonstrate echogenic cassi and prominent cortices. Previous exam demonstrated left cervical nodes measuring 1.5 x 0.9 x 0.8 cm, 1.4 x 0.4 x 0.9 cm, 1.9 x 0.4 x 0.8 cm, and 1.9 x 0.7 x 1.0 cm. US/US soft tiss head and/or neck IMPRESSION: Bilateral cervical adenopathy as detailed above. Correlation with clinical exam recommended to determine further management. Continued surveillance ultrasound recommended.
== END 2023-12-18 15:34 | disposition home or self-care (01) ==
LOC: HO.US 15:33
PROVIDERS: PCP Internal Medicine; Visit Provider Internal Medicine Medical Oncology
DX: R59.0 Localized enlarged lymph nodes (principal)
CPT/HCPCS: 76536

== ENCOUNTER 2023-12-25 15:58 | Outpatient (AMB) | payer OTHER, SELFPAY ==
[2023-12-25 15:57] VITALS: BP 142/64; PULSE 75; O2SAT 98; BMI 37.8
--- NOTE | 2023-12-25 15:57 | MHC.OFFVIS ---
Intake Vital Signs 12/25/23 15:57 Height 5 ft Weight 193 lb 5.526 oz BMI 37.8 BP 142/64 H Blood Pressure Location Rt brachial Position Sitting Pulse 75 Pulse Source Pulse Oximeter Pulse Oximetry (%) 98 Oxygen Delivery Method Room Air Intake Visit Reasons: Polyarthralgia/CM Intake Note: Patient last seen 01/27/23 presents today for follow up. 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 She recently saw Dr. Rudd and a neck ultrasound was ordered for follow-up. She states that recently she has been getting episodes of abrupt spasms of her forearms that sometimes affects her fingers, she showed me a picture with a trigger factor affecting her right index finger. She felt the spasm however in her forearm, she also gets episodes of stiffness and flexion of all her left hand fingers. States that she has been helping her daughter plaque and was cleaning out the closet the last few days. She denies any swollen joints. She states that she gets generalized morning stiffness lasting about 5 minutes. Initial history: This is a 47-year-old female with a past medical history of asthma, depression, morbid obesity s/p sleeve gastrectomy who presents for evaluation of multiple symptoms. The condition started in April of 2022 with fevers up to 103, fatigue, intermittent joint pain and swollen lymph nodes in neck, axilla, groin and genital areas, nausea, vomiting, anorexia, 22 lb weight loss. She would also have bumpy skin lesions on her face. She went to the emergency room at [facility] and was discharged home with Motrin. She then showed up at [facility] Emergency Room and tick panel was done which was negative, patient was discharged on doxycycline. She stated that she took the doxycycline for about 2 weeks and her symptoms gradually improved. She currently denies any fevers, swollen lymph nodes have gone down. Some days she wakes up with stiffness in her right wrist, not associated with swelling. She continues to have GI upset. She has regained all the lost weight. She denies any blood or frothy urine. She states that her sister at 41 from heart condition. Mentions that her brother might have rheumatoid arthritis. She is unaware of her parents' family history as she is a foster child. [facility] Medical History Hiatal hernia Cardiomyopathy Asthma Depression Lymphadenitis, chronic Surgical History Hx of hernia repair Hx of tubal ligation Hx of section History of sleeve gastrectomy Family History Mother Cancer Father Alcohol abuse Substance abuse Brother No problems noted. Sister Heart problem Daughter Muscular dystrophy Social History Household Members: Family Housing: House Are you a primary attending ambulatory care to a significant other at home: Yes (grandchildren) Alcohol intake: current Alcohol intake frequency: holidays/special occasions only Alcohol type: wine Patient Tobacco Use Status: Current everyday Tobacco user Cigarette Packs Per Day: 0.5 Years Smoked: 20 e-Cigarette/Vaping Use: Never Used service: No Current occupational status: disabled Current occupation: Former [employer] Review of Systems Musc Reports muscle cramps, Reports radiating pain into limb and Reports stiffness Physical Exam Vital Signs: Last Vital Signs Pulse 75 12/25/23 15:57 BP 142/64 H 12/25/23 15:57 Pulse Ox 98 12/25/23 15:57 Oxygen Delivery Method Room Air 12/25/23 15:57 BMI result Body Mass Index 37.8 Const General: cooperative, healthy appearing, comfortable, no acute distress and well developed Nutritional Appearance: obese Orientation/consciousness: patient oriented x3 Limitations: no limitations HEENT Head: Yes normocephalic and Yes atraumatic Resp Effort & Inspection: normal respiratory effort and able to speak in complete sentences Neuro General: patient oriented x3 Extrem Other: No active synovitis today. No tender tendons or joints of either wrist or hand. Normal nailfold capillaroscopy Left trochanteric bursa area tenderness Mild triggering left 5th flexor tendon No flexor or extensor tendon tenderness both hands Positive Tawanna's test on the left Assessment & Plan Assessment & Plan (1) Lymphadenitis, chronic: Code(s): I88.1 - Chronic lymphadenitis, except mesenteric Plan: This is a 48-year-old female who presents for follow up of multiple symptoms. In April of 2022 she started having fevers up to 103, diffuse lymphadenopathy, fatigue, weight loss, anorexia, abdominal pain, and bumpy skin rash. Workup revealed significantly elevated inflammatory markers, mild leukopenia, CT chest showed axillary lymphadenopathy small pleural effusions and no infiltrates, CT abdomen unremarkable. Comprehensive serology is unremarkable except for low titer positive anti Scl 70. Patient has no features of scleroderma however. There is no Raynaud's, no skin thickening, she has normal nailfold capillaroscopy. Three week prednisone tapering course was prescribed for arthralgias which did not help. Repeat CT chest 2022 was unremarkable without lymphadenopathy. She was evaluated by heme/Onc and a cervical ultrasound was done which showed lymphadenopathy. A repeat ultrasound was done for monitoring recently, report not yet available. Continue to follow-up with hematology/oncology 2D echo showed a mildly reduced EF and a an enlarged right ventricle with normal RV systolic function. Patient's sister in her 40s of a heart condition. Patient was evaluated by patents examiner and coronary CTA was unremarkable. Today, I do not see any signs suggestive of an autoimmune rheumatic disease. I will Continue to monitor patient periodically (2) MGUS (monoclonal gammopathy of unknown significance): Code(s): D47.2 - Monoclonal gammopathy Plan: Continue to follow-up with heme/Onc (3) De Quervain's disease (radial styloid tenosynovitis): Code(s): M65.4 - Radial styloid tenosynovitis [de Quervain] Plan: Patient gets intermittent episodes of finger triggering, muscle spasms of her forearms and stiffness of her hands, symptoms rather mechanical and related to use. I prescribed a thumb spica splint for her de Quervain tenosynovitis. Advised patient to start applying Voltaren gel Plan I spent 28 minutes reviewing patient's chart, evaluating patient, placing orders, counseling patient and documenting in the chart Medications: New [thumb spica] wear nightly & as much as possible throughout the day 1 ea 0RF Coding Level of Care Code Est Pt Level 4 (30387) Diagnoses Lymphadenitis, chronic I88.1 MGUS (monoclonal gammopathy of unknown significance) D47.2 De Quervain's disease (radial styloid tenosynovitis) M65.4
== END 2023-12-25 16:20 | disposition home or self-care (01) ==
PROVIDERS: PCP Internal Medicine; Visit Provider Student in an Organized Health Care Education/Training Program
DX: I88.1 Chronic lymphadenitis, except mesenteric (principal); D47.2 Monoclonal gammopathy; M65.4 Radial styloid tenosynovitis [de Quervain]
CPT/HCPCS: 99214

== ENCOUNTER → 2023-12-25 15:58 | Outpatient (BNVA) | payer OTHER, SELFPAY | PROVIDERS: PCP Internal Medicine; Visit Provider Student in an Organized Health Care Education/Training Program | DX: I88.1 Chronic lymphadenitis, except mesenteric (principal); D47.2 Monoclonal gammopathy; M65.4 Radial styloid tenosynovitis [de Quervain] | CPT/HCPCS: 99212 ==

== ENCOUNTER 2024-04-25 14:52 | Outpatient (AMB) | payer OTHER, SELFPAY ==
--- NOTE | 2024-04-25 14:52 | MHC.OFFVIS ---
Vital Signs 04/25/24 14:57 Height 5 ft Weight 186 lb 1.122 oz BMI 36.3 BP 112/80 Blood Pressure Location Lt brachial Position Sitting Respiration 16 Pulse 92 Pulse Source Pulse Oximeter Pulse Oximetry (%) 97 Oxygen Delivery Method Room Air Intake Visit Reasons: Lymphadenopaty Intake Note: Patient presents for Lymphadenopathy. Allergies No Known Allergies [No Known Allergies*] Allergy (Verified 04/25/24 14:57) Medication List - Last Reconciled 04/25/24 by Lucy Hendrix MD albuterol sulfate 90 mcg/actuation (ProAir HFA) 2 puffs inhalation Q6H PRN [thumb spica wear nightly & as much as possible throughout the day] HPI Comments Details: 48-year-old female with intermittent lymphadenopathy returns for follow-up. She states that she feels relatively well overall except for recurrent left hip area pain. Worse with activity. She states that she gets intermittent flare-ups of stiffness of her hands but no significant swelling. Has not noted any significant lymphadenopathy. Denies any fevers. No skin rashes. Initial history: This is a 47-year-old female with a past medical history of asthma, depression, morbid obesity s/p sleeve gastrectomy who presents for evaluation of multiple symptoms. The condition started in April of 2022 with fevers up to 103, fatigue, intermittent joint pain and swollen lymph nodes in neck, axilla, groin and genital areas, nausea, vomiting, anorexia, 22 lb weight loss. She would also have bumpy skin lesions on her face. She went to the emergency room at [facility] and was discharged home with Motrin. She then showed up at [facility] Emergency Room and tick panel was done which was negative, patient was discharged on doxycycline. She stated that she took the doxycycline for about 2 weeks and her symptoms gradually improved. She currently denies any fevers, swollen lymph nodes have gone down. Some days she wakes up with stiffness in her right wrist, not associated with swelling. She continues to have GI upset. She has regained all the lost weight. She denies any blood or frothy urine. She states that her sister at 41 from heart condition. Mentions that her brother might have rheumatoid arthritis. She is unaware of her parents' family history as she is a foster child. [facility] Medical History Hiatal hernia Cardiomyopathy Asthma Depression Lymphadenitis, chronic Surgical History Hx of hernia repair Hx of tubal ligation Hx of section History of sleeve gastrectomy Family History Mother Cancer Father Alcohol abuse Substance abuse Brother No problems noted. 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 Review of Systems Musc Reports arthralgias and Reports stiffness Physical Exam Vital Signs: Last Vital Signs Pulse 92 04/25/24 14:57 Resp 16 04/25/24 14:57 BP 112/80 04/25/24 14:57 Pulse Ox 97 04/25/24 14:57 Oxygen Delivery Method Room Air 04/25/24 14:57 BMI result Body Mass Index 36.3 Const General: cooperative, healthy appearing, comfortable, no acute distress and well developed Nutritional Appearance: obese Orientation/consciousness: patient oriented x3 Limitations: no limitations HEENT Head: Yes normocephalic and Yes atraumatic Resp Effort & Inspection: normal respiratory effort and able to speak in complete sentences Auscultation: clear to auscultation bilaterally Cardio Rate: regular rate Rhythm: regular rhythm Skin General skin exam: no rashes or lesions noted Neuro General: patient oriented x3 Extrem Other: No active synovitis today. No tender tendons or joints of either wrist or hand. Negative Tawanna's test bilaterally Normal nailfold capillaroscopy Left groin pain with straight leg raise test on the left Left groin pain with flexion adduction and internal rotation of left lower extremity Left groin pain with left foot inversion No flexor or extensor tendon tenderness both hands Assessment & Plan Assessment & Plan (1) Lymphadenitis, chronic: Code(s): I88.1 - Chronic lymphadenitis, except mesenteric Category: Medical Plan: This is a 48-year-old female who presents for follow up of multiple symptoms. In April of 2022 she started having fevers up to 103, diffuse lymphadenopathy, fatigue, weight loss, anorexia, abdominal pain, and bumpy skin rash. Workup revealed significantly elevated inflammatory markers, mild leukopenia, CT chest showed axillary lymphadenopathy small pleural effusions and no infiltrates, CT abdomen unremarkable. Comprehensive serology is unremarkable except for low titer positive anti Scl 70. Patient has no features of scleroderma however. There is no Raynaud's, no skin thickening, she has normal nailfold capillaroscopy. 3 week prednisone tapering course was prescribed for arthralgias which did not help. Repeat CT chest 2022 was unremarkable without lymphadenopathy. S 2D echo showed a mildly reduced EF and a an enlarged right ventricle with normal RV systolic function. Patient's sister in her 40s of a heart condition. Patient was evaluated by hogshead stripper and coronary CTA was unremarkable. Today, I do not see any signs suggestive of an autoimmune rheumatic disease. I will Continue to monitor patient periodically Follow-up in 6 months (2) MGUS (monoclonal gammopathy of unknown significance): Code(s): D47.2 - Monoclonal gammopathy Category: Medical Plan: Continue to follow-up with heme/Onc (3) Osteoarthritis of left hip: Code(s): M16.12 - Unilateral primary osteoarthritis, left hip Category: Medical Qualifiers: Osteoarthritis type: primary Qualified Code(s): M16.12 - Unilateral primary osteoarthritis, left hip Plan: I think her symptoms today are more related to left hip osteoarthritis. Patient was referred for PT in the past but she went to 2 sessions only. Did not like the place. I provided patient with a printout of home exercises. Can take Tylenol as needed. Use NSAIDs sparingly. Denies patient to let us know if there is no improvement and we can refer her to pain management to consider an injection Plan I spent 28 minutes reviewing patient's chart, evaluating patient, counseling patient and documenting in the chart Coding Level of Care Code Est Pt Level 4 (76701) Diagnoses Lymphadenitis, chronic I88.1 MGUS (monoclonal gammopathy of unknown significance) D47.2 Primary osteoarthritis of left hip M16.12 Osteoarthritis type: primary
[2024-04-25 14:57] VITALS: BP 112/80; PULSE 92; RESP 16; O2SAT 97; BMI 36.3
== END 2024-04-25 15:20 | disposition home or self-care (01) ==
LOC: HO.RHE 14:52
PROVIDERS: PCP Internal Medicine; Visit Provider Student in an Organized Health Care Education/Training Program
DX: I88.1 Chronic lymphadenitis, except mesenteric (principal); D47.2 Monoclonal gammopathy; M16.12 Unilateral primary osteoarthritis, left hip
CPT/HCPCS: 99214

== ENCOUNTER → 2024-04-25 14:52 | Outpatient (BNVA) | payer OTHER, SELFPAY | PROVIDERS: PCP Internal Medicine; Visit Provider Student in an Organized Health Care Education/Training Program | DX: I88.1 Chronic lymphadenitis, except mesenteric (principal); D47.2 Monoclonal gammopathy; M16.12 Unilateral primary osteoarthritis, left hip | CPT/HCPCS: 99212 ==

== ENCOUNTER 2024-11-19 13:35 | Outpatient (AMB) | payer OTHER, SELFPAY ==
--- NOTE | 2024-11-19 13:38 | MHC.OFFVIS ---
Vital Signs 11/19/24 13:41 Height 5 ft Weight 203 lb 14.841 oz BMI 39.8 BP 110/76 Blood Pressure Location Lt brachial Position Sitting Pulse 78 Pulse Source Pulse Oximeter Pulse Oximetry (%) 98 Oxygen Delivery Method Room Air Intake Visit Reasons: lymphadenopathy Intake Note: Patient presents for lymphadenopathy. Credit And Collections Representative Required: No Accompanied by: Self / Same As Patient Allergies No Known Allergies [No Known Allergies*] Allergy (Verified 11/19/24 13:42) HPI HPI lymphadenopathy: Details: Continues to follow up with Oncology. Reports no recent flares. She has been experiencing pain in left hip daily. Some days is more intense than others. It affects the way that she walks. Pain radiates from groin region to the buttocks. She is experiencing cramping of her hands and intermittently in her toes. When her fingers lock up at take some time for them to relax. [facility] Medical History Hiatal hernia Cardiomyopathy Asthma Depression Lymphadenitis, chronic Surgical History Hx of hernia repair Hx of tubal ligation Hx of section History of sleeve gastrectomy Family History Mother Cancer Father Alcohol abuse Substance abuse Brother No problems noted. 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 Respiratory: clear to auscultation bilaterally. Good respiratory effort Skin: No lesions seen MSK: Tender to palpate left groin region and left trochanteric bursa. She has good external rotation of left hip but with pain. No synovitis of any joint. No triggering observed. Shoulder abduction 160 degrees bilaterally. Good internal external rotation of bilateral shoulders. Assessment & Plan Assessment & Plan (1) Hand or foot spasms: Comment: She is having more consistent spasms in her hands/cramping with intermittent symptoms in her toes. I will rule out electrolyte abnormalities with labs. Code(s): R25.2 - Cramp and spasm Category: Medical Plan: Electrolytes ordered Encouraged increased hydration Return to clinic in 3 months or sooner if needed (2) Hip pain: Comment: Left groin pain with left trochanteric bursa tenderness consistent with trochanteric bursitis. Differential diagnosis for groin pain includes osteoarthritis versus ligament/muscle strain. I will evaluate further to rule out hip pathology contributing to groin pain with hip x-ray. She reports that she has received trochanteric bursa cortisone injection in the past, which provided long-term benefit. Code(s): M25.559 - Pain in unspecified hip Category: Medical Qualifiers: Laterality: left Qualified Code(s): M25.552 - Pain in left hip Plan: X-ray left hip ordered Return to clinic in 1 month for left trochanteric bursa cortisone injection I will order PT for hip strengthening after next visit (3) Lymphadenitis, chronic: Comment: In April of 2022 she started having fevers up to 103, diffuse lymphadenopathy, fatigue, weight loss, anorexia, abdominal pain, and bumpy skin rash, significantly elevated inflammatory markers, mild leukopenia, CT chest showed axillary lymphadenopathy small pleural effusions and no infiltrates, CT abdomen unremarkable. Further workup revealed low titer positive anti Scl 70. Patient has no features of scleroderma or any other signs or symptoms suggestive of connective tissue disease. She continues to follow up with Oncology without exacerbation of lymphadenopathy. Low clinical suspicion for connective tissue disease. Code(s): I88.1 - Chronic lymphadenitis, except mesenteric Category: Medical Plan: No further rheumatology workup is recommended Orders: Orders XR hand RT min 3V Today R25.2 - Cramp and spasm Potassium Today R25.2 - Cramp and spasm XR hand LT min 3V Today R25.2 - Cramp and spasm Albumin Level Today R25.2 - Cramp and spasm Calcium Today R25.2 - Cramp and spasm Magnesium Today R25.2 - Cramp and spasm XR hip LT min 2V Today M25.559 - Pain in unspecified hip Coding Level of Care Code Est Pt Level 4 (95707) Complex EM visit Add On G2211 Diagnoses Hand or foot spasms R25.2 Pain of left hip M25.552 Laterality: left Lymphadenitis, chronic I88.1
[2024-11-19 13:41] VITALS: BP 110/76; PULSE 78; O2SAT 98; BMI 39.8
--- OUTSIDE RECORDS SUMMARY | 2024-11-19 16:43 | XMS_ITS | Encounter Summary ---
Author Organization [facility] Address [id number] [place] [phone] Care Team Providers Care Wash Worker Name Role Phone Jocelyn Guadalupe MD Primary Care Provider [phone] Reason for Referral * Consultation (Routine) - Closed Specialty Diagnoses / Procedures Referred By Ace woodson Referred To Contact Family Nutrition Services / Bariatrics Diagnoses BMI 38.0-38.9,adult Colleen Chavis NP 175 [facility] [address] [place] [address] Phone: tel: fax: Bariatric Surgery - [place] 175 [facility] [address] [place] [address] Phone: tel: fax: Referral ID Status Reason Start Date Expiration Date V isits Requested Visits Authorized [id number] Closed Specialty Services Required 11/06/2024 11/06/2025 1 1 Reason for Visit * Reason Comments Anxiety Encounter Details Date Type Department Care Team (Late st Contact Info) Description 11/06/2024 1:15 PM EST Office Visit Internal Medicine - [place] 175 [facility] [address] [place] [phone] Colleen Chavis NP 175 [facility] [address] [place] [address] Anxiety (Primary Dx); Panic attacks; Depression, unspecified depression type; BMI 38.0-38.9,adult; Tobacco dependency Social History Tobacco Use Types Packs/Day Years Used Date Smoking Tobacco: Every Day Cigarettes Smokeless Tobacco: Current Alcohol Use Standard Drinks/Week Comments Yes 0 (1 standard drink = 0.6 oz pur e alcohol) Comments Unknown Sex and Gender Information Value Date Recorded Sex Assigned at Not on file Legal Sex Female 10:00 AM EST Gender Identity Not on file Sexual Orientation Not on file documented as of this encounter Last Filed Vital Signs Vital Sign Reading Time Taken Comments Blood Pressure 124/80 11/06/2024 1:05 PM EST Pulse 95 11/06/2024 1:05 PM EST Temperature 36.4 ??C (97.5 ??F) 11/06/2024 1:05 PM ES T Respiratory Rate - - Oxygen Saturation 95% 11/06/2024 1:05 PM EST Inhaled Oxygen Concentration - - Weight 89.9 kg (198 lb 3.2 oz) 11/06/2024 1:05 P M EST Height 152.4 cm (5') 11/06/2024 1:05 PM EST Body Mass Index 38.71 11/06/2024 1:05 PM EST documented in this encounter Ordered Prescriptions Prescription Sig Dispense Quantity Refills Last Filled Start Date End Date busPIRone (BUSPAR) 5 mg tabletIndications: Anxiety,Panic attacks Take 1 tablet (5 mg total) by mouth 2 (two) times a day if needed (panic attacks). 90 tablet 3 11/06/2024 11/06/2025 buPROPion XL (WELLBUTRIN XL) 150 mg 24 hr tabletIndications: Tobacco dependency,Anxiety ,Depression, unspecified depression type Take 1 tablet (150 mg total) by mouth 1 (one) time each day in the morning. 90 tablet 3 11/06/2024 documented in this encounter Progress Notes * Colleen Chavis NP - 11/06/2024 1:15 PM EST Quitting Smoking Quitting smoking is the most important step you can take to improve your health. We're glad you have set a goal to improve your health. Quit Smoking Resources In addition to medications, use the STAR plan to help you successfully quit. Stick with your quit date! Tell friends, family, and coworkers your quit date. Request their understanding and support. Anticipate and prepare for challenges. Some examples are withdrawal symptoms, being around others who smoke, and drinking alcohol. Remove all tobacco products and paraphernalia from your environment. Make your home and vehicles smoke-free. Free resources for additional support: National tobacco quitline: 0-932-ETYU-NOW ( ). SmokefreeTXT is a free text program to assist you in quitting. Visit https://www.smokefree.gov/smokefreetxt for more information. * Colleen Chavis NP - 11/06/2024 1:15 PM EST CHIEF COMPLAINT: Anxiety IDENTIFIER: Honey Carter is a 49 y.o. old female. HPI: Endorses increased anxiety due to recent event of getting stuck in an JILL, she felt the braun closing in on her, she called 911. Feels like this triggered PTSD for her. Smoking 1 ppd of cigarettes due to increased anxiety. ROS: See HPI. PAST MEDICAL HISTORY: Patient Active Problem List Diagnosis Date Noted Asthma 10/24/2024 Class 2 obesity with body mass index (BMI) of 35.0 to 35.9 in adult 10/24/2024 Uterine leiomyoma 03/04/2019 Depression 11/01/2011 Smoking 10/04/2010 Past Surgical History: Procedure Laterality Date SECTION 1990 PROCEDURE: HISTORICAL ; COMMENT: x1 TUBAL LIGATION PROCEDURE: HISTORICAL TUBAL LIGATION SOCIAL HISTORY: Social History Tobacco Use Smoking status: Every Day Current packs/day: 0.50 Types: Cigarettes Smokeless tobacco: Current Substance Use Topics Alcohol use: Yes FAMILY HISTORY: Family History Problem Relation Name Age of Onset Other (Other: old age) Maternal Grandfather Other (Other: old age) Paternal Grandmother Other (Other: cancer, unknown) Mother Alcohol/Drug Father Blindness Neg Hx Cataracts Neg Hx Glaucoma Neg Hx Macular degeneration Neg Hx Strabismus Neg Hx Family Status Relation Name Status MGF PGM Mother Father Neg Hx (Not Specified) MGM No partnership data on file MEDICATIONS DISCONTINUED/REORDERED: Medications Discontinued During This Encounter Medication Reason buPROPion XL (WELLBUTRIN XL) 150 mg 24 hr tablet Reorder ACTIVE MEDICATIONS: Outpatient Medications Marked as Taking for the 11/06/24 encounter (Office Visit) with Colleen Chavis NP Medication Sig Dispense Refill acetaminophen (TYLENOL) 325 mg tablet Take 2 tablets (650 mg total) by mouth every 6 (six) hours. albuterol HFA (PROAIR HFA ; PROVENTIL HFA ; VENTOLIN HFA) 90 mcg/actuation inhaler Inhale 2 puffs by mouth every 6 (six) hours if needed for shortness of breath or wheezing (Cough). buPROPion XL (WELLBUTRIN XL) 150 mg 24 hr tablet Take 1 tablet (150 mg total) by mouth 1 (one) timeeach day in the morning. 90 tablet 3 cholecalciferol (VITAMIN D-3) 125 mcg (5,000 unit) capsule cholecalciferol (VITAMIN D-3) 50 mcg (2,000 unit) tablet Take 1 tablet (2,000 Units total) by mouth1 (one) time each day. diclofenac (VOLTAREN) 50 mg EC tablet Take 1 tablet (50 mg total) by mouth 2 (two) times a day. fluocinolone and shower cap 0.01 % oil Apply 1 oz topically 1 (one) time each day in the evening. ketoconazole (NIZORAL) 2 % cream APPLY LOCALLY TWICE A DAY ketoconazole 1 % shampoo Apply to wet hair, lather, and rinse thoroughly; repeat. Use every 3 to 4 days for up to 8 weeks ondansetron (ZOFRAN) 4 mg tablet Take 1 tablet (4 mg total) by mouth every 8 (eight) hours if needed for nausea. [DISCONTINUED] buPROPion XL (WELLBUTRIN XL) 150 mg 24 hr tablet Take 1 tablet (150 mg total) by mouth 1 (one) time each day in the morning. ALLERGIES: No Known Allergies PHYSICAL EXAM: Visit Vitals BP 124/80 (BP Location: Left arm;Right arm, Patient Position: Sitting, BP Cuff Size: Adult) Pulse 95 Temp 36.4 ??C (97.5 ??F) (Temporal) Ht 1.524 m (60 ) Wt 89.9 kg (198 lb 3.2 oz) SpO2 95% BMI 38.71 kg/m?? Smoking Status Every Day BSA 1.86 m?? Physical Exam Constitutional: Appearance: Normal appearance. Cardiovascular: Rate and Rhythm: Normal rate and regular rhythm. Pulses: Normal pulses. Heart sounds: Normal heart sounds. Pulmonary: Effort: Pulmonary effort is normal. Breath sounds: Normal breath sounds. Neurological: General: No focal deficit present. Mental Status: She is alert and oriented to person, place, and time. Psychiatric: Mood and Affect: Mood normal. Behavior: Behavior normal. LABS/IMAGING: Abstract on 10/24/2024 Component Date Value Ref Range Status Gonorrhea/Chlamydia Screening 11/17/2016 Abstracted Final Hepatitis C Screening 11/17/2016 Abstracted Final HIV Screening 11/17/2016 Abstracted Final Annual BMP Blood Test 05/12/2017 Abstracted Final Cervical Cancer Screening: HPV 01/17/2022 Abstracted, Negative Final Pap smear 01/17/2022 Abstracted, Positive Final LDL/HDL Ratio 06/08/2022 2 0 - 4 Final Triglycerides 06/08/2022 61 0 - 150 mg/dL Final Cholesterol 06/08/2022 152 0 - 200 mg/dL Final HDL 06/08/2022 73 >=40 mg/dL Final LDL Cholesterol 06/08/2022 67 0 - 100 mg/dL Final Hemoglobin A1C 06/08/2022 5.5 <=6.5 % Final IMPRESSION: 1. Anxiety 2. Panic attacks 3. Depression, unspecified depression type 4. BMI 38.0-38.9,adult 5. Tobacco dependency PLAN: 1. Anxiety buPROPion XL (WELLBUTRIN XL) 150 mg 24 hr tablet busPIRone (BUSPAR) 5 mg tablet 2. Panic attacks busPIRone (BUSPAR) 5 mg tablet 3. Depression, unspecified depression type buPROPion XL (WELLBUTRIN XL) 150 mg 24 hr tablet 4. BMI 38.0-38.9,adult Ambulatory referral to Weight Management 5. Tobacco dependency buPROPion XL (WELLBUTRIN XL) 150 mg 24 hr tablet 1. Anxiety, depression: Start Wellbutrin 150 mg daily. 2. Panic attacks: Take BuSpar as needed. 3. BMI 38.71: Referral sent to weight management. 4. Tobacco Counseling The patient smokes cigarettes and desires to quit. We created the following quit plan: Prescribed the following medications: bupropion. Spent at least 3 minutes discussing smoking cessation. Recommend follow-up in 4 months. Advised the patient to call me if any problems. Patient understands the plan. Patient is in agreement with the plan. Colleen Chavis NP on 11/11/2024 at 11:28 AM EST documented in this encounter Plan of Treatment Upcoming Encounters Date Type Department Care Team (Late st Contact Info) Description 11/20/2024 1:30 PM EST Telemedicine Bariatric Surgery - [place] [address] [phone] [address] [address] 01/13/2025 8:30 AM EDT Appointment [facility] [address] [place] [phone] 02/27/2025 2:45 PM EDT Office Visit Bariatric Surgery - [place] [address] [phone] Troy Rodriguez MD [address] [address] 03/07/2025 1:30 PM EDT Office Visit Internal Medicine - [place] [address] [phone] Colleen Chavis NP [address] [address] Scheduled Referrals Name Type Priority Associated Diagnoses Order Schedule Ambulatory referral to Weight Management Outpatient Referral Routine BMI 38.0-38.9,adult 1 Occurrences starting 11/06/2024 until 11/06/2025 documented as of this encounter Visit Diagnoses Diagnosis Anxiety- Primary Anxiety state, unspecified Panic attacks Panic disorder without agoraphobia Depression, unspecified depression type BMI 38.0-38.9,adult Tobacco dependency Tobacco use disorder documented in this encounter Discontinued Medications Medication Sig Discontinue Reason Start Date End Da te buPROPion XL (WELLBUTRIN XL) 150 mg 24 hr tablet Take 1 tablet (150 mg total) by mouth 1 (one) time each day in the morning. Reorder 02/27/2023 11/06/2024 documented as of this encounter Care Teams Wash Worker Relationship Specialty Start Date End Date Chaganti, Jocelyn D, MD [address] [phone] PCP - General 11/03/22 documented as of this encounter
--- OUTSIDE RECORDS SUMMARY | 2024-11-19 16:43 | XMS_ITS | Encounter Summary ---
Author Organization [facility] Address [address] [place] [address] Care Team Providers Care Dental Instructor Name Role Phone Jocelyn Guadalupe MD Primary Care Provider [phone] Reason for Visit * Reason Comments Follow-up Encounter Details Date Type Department Care Team ([facility] st Contact Info) Description 11/14/2024 9:15 AM EST Office Visit Bariatric Surgery - [place] 175 [facility] [address] [place] [phone] Troy Rodriguez MD 175 [facility] [address] [place] [address] Class 3 severe obesity due to excess calories without serious comorbidity with body mass index (BMI) of 40.0 to 44.9 in adult (CMS/HCC) (Primary Dx) Social History Tobacco Use Types Packs/Day Years [...] Sign Reading Time Taken Comments Blood Pressure 128/79 11/14/2024 9:17 AM EST Pulse 91 11/14/2024 9:17 AM EST Temperature 36.8 ??C (98.2 ??F) 11/14/2024 9:17 AM ES T Respiratory Rate - - Oxygen Saturation - - Inhaled Oxygen Concentration - - Weight 90.3 kg (199 lb) 11/14/2024 9:17 AM EST Height 149.9 cm (4' 11 ) 11/14/2024 9:17 AM EST Body Mass Index 40.19 11/14/2024 9:17 AM EST documented in this encounter Progress Notes * Troy Rodriguez MD - 11/14/2024 9:15 AM EST Ms. Carter is a 49 y.o. year old female who presents for surgical follow up regarding obesity. HPI: Ms. Carter had sleeve in 2019. Max weight was 230 lbs. Low wt 160 lbs. Today she mentions that she initially did very well with the weight loss, however had multiple friends and family members who are aware quite negative regarding her weight loss and the way she looked, thus she stopped exercising and started to eat more. Caused quite a bit of insecurity and lack ofmental health. More recently she says she has had some vomiting, worse with soda, orange juice, tomatoes. Although she had quit smoking in the past, she restarted this due to stress. BMI is 40.19. ROS: GENERAL: No malaise, significant unintentional weight loss, fever, chills or night sweats. HEENT: No changes in hearing or vision, no nose bleeds or other nasal problems. NECK: No lumps, goiter, pain or significant neck swelling RESPIRATORY: No cough, wheezing or shortness of breath CARDIOVASCULAR: No chest pain, leg swelling or palpitations. GI: No abdominal discomfort, nausea, vomiting, or change in bowel habits. : No dysuria, frequency or incontinence. SKIN: No lesions, rash or itching. HEMATOLOGY: No prolonged bleeding, easy bruisability. LYMPHOLOGY No swollen nodes. MUSCULOSKELETAL: hip arthritis. NEURO: No abnormalities. All other systems reviewed which are negative. PAST MEDICAL HISTORY: Patient Active Problem List Diagnosis Date Noted Date Diagnosed Asthma 10/24/2024 Class 2 obesity with body mass index (BMI) of 35.0 to 35.9 in adult 10/24/2024 Uterine leiomyoma 03/04/2019 Depression 11/01/2011 Smoking 10/04/2010 PAST SURGICAL HISTORY: Past Surgical History: Procedure Laterality Date SECTION [...] Specified) MGM No partnership data on file MEDICATIONS: There are no discontinued medications. ACTIVE MEDICATIONS: No outpatient medications have been marked as taking for the 11/14/24 encounter (Office Visit) with Troy Rodriguez MD. ALLERGIES: No Known Allergies PHYSICAL EXAM: Visit Vitals BP 128/79 Pulse 91 Temp 36.8 ??C (98.2 ??F) (Temporal) Ht 1.499 m (59 ) Wt 90.3 kg (199 lb) BMI 40.19 kg/m?? Smoking Status Every Day BSA 1.84 m?? APPEARANCE: Alert and oriented and in no acute distress EYES: Conjunctiva normal and sclera normal and anicteric. NECK: Neck supple with no adenopathy. HEART: RRR with normal S 1 and S 2, no murmurs, no gallops. LUNG: Clear to auscultation LYMPH NODES: No gross cervical or clavicular lymphadenopathy. ABDOMEN: Bowel sounds normoactive, soft, non-tender, non-distended, EXTREMITIES: Extremities warm and well perfused without clubbing, cyanosis, or edema. SKIN: Skin color and texture normal. No rashes or lesions. NEUROLOGIC: Alert and oriented ??3. No motor or sensory deficits in the extremities. LABS/IMAGING: ASSESSMENT: 1. Class 3 severe obesity due to excess calories without serious comorbidity with body mass index (BMI) of 40.0 to 44.9 in adult (CMS/HCC) PLAN: 1. Good candidate for PATT procedure. Needs malabsorption. The patient will undergo a conversion to the single anastomosis duodenal ileal bypass. This procedure was chosen because it is a malabsorptive procedure and also avoids any dissection around the cardia and the hiatus, which is probably involved with adhesions and scar tissue from previous operations. I had a prolonged discussion about potential risk and complication showing the patient pictures of the procedure. Other than the complications of the general anesthesia such as pulmonary embolism remains thrombosis, cardiac and respiratory events, I also discussed potential for anastomotic leak, anastomotic bleeding, peritoneal bleeding and injuries to small bowel or duodenum. The potential need for reoperation was discussed. I also indicated that this is a mild start the procedure, thereforeshe has to be very diligent about taking daily supplements. She is at risk of developing anemia from deficiencies of vitamin B12 and iron. Bone disease due to deficiencies of calcium and vitamin D. Peripheral nerve complications from deficiencies of the vitamin B complex. Rare hepatic encephalopathy due to the inability of the liver to deal with the excess metabolism of the peripheral fat. She understands and agrees to proceed. documented in this encounter Plan of Treatment Upcoming Encounters Date Type Department Care Team (Late st Contact Info) Description 11/20/2024 1:30 PM EST Telemedicine Bariatric Surgery - [place] [address] [phone] [address] [address] 01/13/2025 8:30 AM EDT Appointment [facility] [address] [place] [phone] 02/27/2025 2:45 PM EDT Office Visit Bariatric Surgery - [place] [address] [phone] Troy Rodriguez MD [address] [address] 03/07/2025 1:30 PM EDT Office Visit Internal Medicine - [place] [address] [phone] Colleen Chavis NP [address] [address] documented as of this encounter Visit Diagnoses Diagnosis Class 3 severe obesity due to excess calories without serious comorbidity with body mass index (BMI) of 40.0 to 44.9 in adult ([facility]/HCC)- Primary documented in this encounter Care Teams Dental Instructor Relationship Specialty Start Date End Date Jocelyn Guadalupe MD [address] [place] [phone] PCP - General 11/03/22 documented as of this encounter
--- OUTSIDE RECORDS SUMMARY | 2024-11-19 16:43 | XMS_ITS | Encounter Summary ---
Author Organization [facility] Address [address] [place] [address] Care Team Providers Care City Sanitarian Name Role Phone Jocelyn Guadalupe MD Primary Care Provider [phone] Reason for Referral * Imaging (Routine) - Authorized Specialty Diagnoses / Procedures Referred By Ace woodson Referred To Contact Radiology Diagnoses BMI 38.0-38.9,adult History of sleeve gastrectomy Hx of hiatal hernia Gastroesophageal reflux disease, unspecified whether esophagitis present Procedures XR UGI w Single Contrast Linda Murillo MD [address] [address] Phone: tel: fax: [facility] CT Scan [address] [place] [address] Phone: tel: Referral ID Status Reason Start Date Expiration Date V isits Requested Visits Authorized [id number] Authorized 11/13/2024 11/13/2025 1 1 Reason for Visit * Reason Comments Consult Revision * Consultation (Routine) - Closed Specialty Diagnoses / Procedures Referred By Ace woodson Referred To Contact Family Nutrition Services / Bariatrics Diagnoses BMI 38.0-38.9,adult Colleen Chavis NP 175 [facility] 200 [place] [address] Phone: tel: fax: Bariatric Surgery - [place] 175 [facility] [address] [place] [address] Phone: tel: fax: Referral ID Status Reason Start Date Expiration Date V isits Requested Visits Authorized [id number] Closed Specialty Services Required 11/06/2024 11/06/2025 1 1 Encounter Details Date Type Department Care Team (Late st Contact Info) Description 11/13/2024 10:45 AM EST Office Visit Bariatric Surgery - [place] [address] [facility] [address] [place] [address] Linda Murillo MD [address] [place] [address] History of sleeve gastrectomy (Primary Dx); BMI 38.0-38.9,adult; Hx of hiatal hernia; Gastroesophageal reflux disease, unspecified whether esophagitis present Social History Tobacco Use Types Packs/Day Years [...] Sign Reading Time Taken Comments Blood Pressure 129/84 11/13/2024 10:53 AM EST Pulse 71 11/13/2024 10:53 AM EST Temperature 36.3 ??C (97.3 ??F) 11/13/2024 10:[address] Respiratory Rate - - Oxygen Saturation - - Inhaled Oxygen Concentration - - Weight 91.2 kg (201 lb) 11/13/2024 10:53 AM EST Height 149.9 cm (4' 11 ) 11/13/2024 10:53 AM EST Body Mass Index 40.6 11/13/2024 10:53 AM EST documented in this encounter Progress Notes * Linda Murillo MD - 11/13/2024 10:45 AM EST HPI: Honey Carter is a 49 y.o. year old female who presents to discuss surgical weight loss. She has had a sleeve gastrectomy in [address] Grove then saw Dr Rodriguez for repair of hiatalhernia on 02/24/2023. Had one post op follow up after her hiatal hernia, then none for bariatric thereafter. Per Dr Rodriguez's note, she had lost 60 lbs, lowest weight was 165, max 230 lbs. Today she mentions that she initially did very well with the weight loss, however had multiple friends and family members who are aware quite negative regarding her weight loss and the way she looked, thus she stopped exercising and started to eat more. Caused quite a bit of insecurity and lack of mental health. More recently she says she has had some vomiting, worse with soda, orange juice, tomatoes. Although she had quit smoking in the past, she restarted this due to stress. Also mentioned that she is interested in duodenal switch, Any limitations/disabilities precluding exercise: none Current exercise regimen: exercising ROS: GENERAL: No malaise, significant unintentional weight loss, fever, chills or night sweats. RESPIRATORY: No cough, wheezing or shortness of breath. No dyspnea on exertion. CARDIOVASCULAR: No chest pain, leg swelling or palpitations. GI: See HPI SKIN: No lesions, rash or itching. HEMATOLOGY/LYMPHOLOGY No prolonged bleeding, easy bruisability or swollen nodes. The remainder of the review of systems is unremarkable PAST MEDICAL HISTORY: Patient Active Problem List Diagnosis Asthma Depression Smoking Uterine leiomyoma Class 2 obesity with body mass index (BMI) of 35.0 to 35.9 in adult PAST SURGICAL HISTORY: Past Surgical History: Procedure Laterality Date SECTION 1990 PROCEDURE: HISTORICAL ; COMMENT: x1 TUBAL LIGATION PROCEDURE: HISTORICAL TUBAL LIGATION GYNECOLOGICAL HISTORY: OB History No obstetric history on file. SOCIAL HISTORY: Social History Tobacco Use Smoking [...] Specified) MGM No partnership data on file ACTIVE MEDICATIONS: No outpatient medications have been marked as taking for the 11/13/24 encounter (Appointment) with Linda Murillo MD. ALLERGIES: reviewed PHYSICAL EXAM: Visit Vitals Smoking Status Every Day APPEARANCE: Alert and in no acute distress EYES: Conjunctiva normal and sclera normal and anicteric. NECK: Neck supple with no adenopathy. HEART: RRR, no murmurs, no gallops. LUNG: Clear to auscultation, no crackles or wheezes LYMPH NODES: No lymphadenopathy. ABDOMEN: Obese, soft, non-tender, without organomegaly or palpable masses. No Hernia appreciated EXTREMITIES: Extremities warm and well perfused without clubbing, cyanosis, or edema. SKIN: Skin color and texture normal. No rashes or lesions. NEUROLOGIC: alert and oriented LABS: reviewed ASSESSMENT: This is 49 y.o. female interested in weight loss surgery. She has a history of laparoscopic sleeve then a hiatal hernia repair. PLAN: The risks, benefits, and alternatives of both procedures were discussed in detail with the patient. The patient was told that their goal weight loss is 5-10% of their current weight while in the 6 months nutritional component of the program. They were also told that they must be a non- smoker (which will be documented with nicotine levels if they are current smokers). They will be required to see the esl professor and comply with the nutritional component of the program for 6 months. They will attend two support groups, obtain a primary care provider clearance letter, and obtain psychiatric clearance. -No sign or symptom of sleep apnea -Although denies reflux, appears to have some nausea and vomiting after acidic food. Recommend GERDdiet. Will obtain upper GI study to rule out hiatal hernia recurrence, anatomic abnormality, and toevaluate her sleeve. -Labs ordered -She will quit smoking -She is interested in discussing a duodenal switch. Once she is done with the dietitian, we will refer her to Dr. Rodriguez to discuss this surgery. Female patients of child bearing age were also counseled against becoming at least one to one and a half years after surgery, due to weight loss and nutritional changes. We discussed the lifelong requirement of nutritional supplementation and adherence to an exercise regiment, as well as the importance of follow-up. The patient expressed understanding and agreement. I spent a total of 45 minutes with the patient, greater than 50% of the time was spent on counseling the patient. I will see this patient back in the office in 6 months once they have completed all components of the program, or sooner if they have any questions. Medication and lab orders: No orders of the defined types were placed in this encounter. documented in this encounter Plan of Treatment Upcoming Encounters Date Type Department Care Team (Late st Contact Info) Description 11/20/2024 1:30 PM EST Telemedicine Bariatric Surgery - [place] [address] [phone] Eden Robles, QUANG [address] [address] 01/13/2025 8:30 AM EDT Appointment [facility] Xray [address] [place] [phone] 02/27/2025 2:45 PM EDT Office Visit Bariatric Surgery - [place] [address] [phone] Troy Rodriguez MD [address] [address] 03/07/2025 1:30 PM EDT Office Visit Internal Medicine - [place] [address] [phone] Colleen Chavis NP [address] [address] Scheduled Orders Name Type Priority Associated Diagnoses Orde r Schedule XR UGI w Single Contrast Imaging Routine BMI 38.0-38.9,adult History of sleeve gastrectomy Hx of hiatal hernia Gastroesophageal reflux disease, unspecified whether esophagitis present Expected: 11/13/2024, Expires: 11/13/2025 CBC and differential Lab Routine BMI 38.0-38.9,adult History of sleeve gastrectomy 1 Occurrences starting 11/13/2024 until 11/13/2025 Comprehensive metabolic panel Lab Routine BMI 38.0-38.9,adult History of sleeve gastrectomy 1 Occurrences starting 11/13/2024 until 11/13/2025 Cortisol Lab Routine BMI 38.0-38.9,adult History of sleeve gastrectomy 1 Occurrences starting 11/13/2024 until 11/13/2025 Ferritin Lab Routine BMI 38.0-38.9,adult History of sleeve gastrectomy 1 Occurrences starting 11/13/2024 until 11/13/2025 Folate Lab Routine BMI 38.0-38.9,adult History of sleeve gastrectomy 1 Occurrences starting 11/13/2024 until 11/13/2025 Helicobacter pylori breath test Lab Routine BMI 38.0-38.9,adult History of sleeve gastrectomy 1 Occurrences starting 11/13/2024 until 11/13/2025 Hemoglobin A1c Lab Routine BMI 38.0-38.9,adult History of sleeve gastrectomy 1 Occurrences starting 11/13/2024 until 11/13/2025 Insulin, total Lab Routine BMI 38.0-38.9,adult History of sleeve gastrectomy 1 Occurrences starting 11/13/2024 until 11/13/2025 Iron and TIBC Lab Routine BMI 38.0-38.9,adult History of sleeve gastrectomy 1 Occurrences starting 11/13/2024 until 11/13/2025 Lipid panel with reflex to direct LDL Lab Routine BMI 38.0-38.9,adult History of sleeve gastrectomy 1 Occurrences starting 11/13/2024 until 11/13/2025 Nicotine and cotinine Lab Routine BMI 38.0-38.9,adult History of sleeve gastrectomy 1 Occurrences starting 11/13/2024 until 11/13/2025 Parathyroid hormone intact Lab Routine BMI 38.0-38.9,adult History of sleeve gastrectomy 1 Occurrences starting 11/13/2024 until 11/13/2025 Thyroid stimulating hormone Lab Routine BMI 38.0-38.9,adult History of sleeve gastrectomy 1 Occurrences starting 11/13/2024 until 11/13/2025 Thyroid stimulating hormone with reflex to free t4 and free t3 Lab Routine BMI 38.0-38.9,adult History of sleeve gastrectomy 1 Occurrences starting 11/13/2024 until 11/13/2025 Uric acid Lab Routine BMI 38.0-38.9,adult History of sleeve gastrectomy 1 Occurrences starting 11/13/2024 until 11/13/2025 Vitamin B1 Lab Routine BMI 38.0-38.9,adult History of sleeve gastrectomy 1 Occurrences starting 11/13/2024 until 11/13/2025 Vitamin B12 Lab Routine BMI 38.0-38.9,adult History of sleeve gastrectomy 1 Occurrences starting 11/13/2024 until 11/13/2025 Vitamin D 25 hydroxy Lab Routine BMI 38.0-38.9,adult History of sleeve gastrectomy 1 Occurrences starting 11/13/2024 until 11/13/2025 documented as of this encounter Visit Diagnoses Diagnosis History of sleeve gastrectomy- Primary BMI 38.0-38.9,adult Hx of hiatal hernia Gastroesophageal reflux disease, unspecified whether esophagitis present documented in this encounter Orders Outpatient Referral Count Last Ordered Date Fir st Ordered Date AMB REFERRAL TO WEIGHT MANAGEMENT 1 025 documented in this encounter Care Teams City Sanitarian Relationship Specialty Start Date End Date Jocelyn Guadalupe MD 175 [facility] [address] [place] [address] PCP - General 11/03/22 documented as of this encounter
--- OUTSIDE RECORDS SUMMARY | 2024-11-19 16:43 | XMS_ITS | Patient Health Record ---
Author Organization [facility] Address [address] [place] [address] Care Team Providers Care Movement Education Specialist Name Role Phone SAPNA GOLDSMITH Unavailable [phone] ALLERGIES No Known Allergies REASON FOR REFERRAL No Information MEDICATIONS Medication SIG (Take, Route, Frequency, Duration) Notes Start Date End Date Status Albuterol Sulfate HFA 108 (90 Base) MCG/ACT INHALE 2 PUFFS INTO LUNGS EVERY 6 HOURS NEEDED FOR COUGH, WHEEZING, OR SHORTNESS OF BREATH Inhalation for 25 Active Vitamin D3 125 MCG (5000 UT) Oral for 30 Active Saxenda 18 MG/3ML inject 0.6 everyday for 1 week, then 1.2mg everyday for a week,1.8mg everyday for a week, then 2.4 everyday for a week, then 3 mg from then on Subcutaneous once a day for 30 days Active SOCIAL HISTORY Tobacco Use: Social History Observation Description Date Details (start date - stop date) Former Smoker NA - NA Sex Assigned At : Social History Observation Description Sex Assigned At Unknown Tobacco Use/Smoking Question Answer Notes Are you a former smoker How long has it been since y ou last smoked? 1-5 years Additional Findings: Tobacco User Modera te cigarette smoker (10-19 cigs/day) Section Notes: started at the age 14 PROBLEMS Problem Type ICD Code Onset Dates Problem Status W/U Status Risk SNOMED Code Notes Problem Encounter for general adult medical examination without abnormal findings (Z00.00) Active confirmed 511558113 Problem Hyperlipidemia, unspecified hyperlipidemia type (E78.5) Active confirmed 07832870 Problem Hypothyroidism, unspecified type (E03.9) Active confirmed 14894895 Problem Pre-diabetes (R73.03) Active confirmed 783787149 Problem Obesity (BMI 30-39.9) (E66.9) Active confirmed 895991923 Problem BMI 37.0-37.9, adult (Z68.37) Active confirmed 417081312 PLAN OF TREATMENT Pending Test Test Name Order Date CBC (COMPLETE BLOOD COUNT) 03/02/2022 COMPREHENSIVE METABOLIC PANEL 03/02/2022 HEMOGLOBIN A1C 03/02/2022 LIPID PANEL 03/02/2022 TSH 03/02/2022 Insulin Level 03/02/2022 Insurance Providers Payer Name Payer Address Payer Phone Subscriber Number Group Number Insured Name Patient Relationship to Insured Coverage Start Date Coverage End Date [employer] or Options [address] [place] [id number] Honey Carter Self - patient is the insured MEDICAL (GENERAL) HISTORY Medical History History ICD Code asthma depression Surgical History Surgery Date(Month/Year) Gastric sleeve 01/2019 section 1990 tubal ligation 1990
--- OUTSIDE RECORDS SUMMARY | 2024-11-19 16:43 | XMS_ITS | Clinical Summary ---
Author Organization 175 [facility] Address [address] [place] [address] Phone Care Team Providers Care Assistant Guest Services Manager Name Role Phone Jocelyn Guadalupe MD Primary Care Provider Allergies No known active allergies Medications diclofenac (VOLTAREN) 50 mg EC tablet Take 1 tablet (50 mg total) by mouth 2 (two) times a day. 3 Active ketoconazole (NIZORAL) 2 % cream APPLY LOCALLY TWICE A DAY 3 Active ondansetron (ZOFRAN) 4 mg tablet Take 1 tablet (4 mg total) by mouth every 8 (eight) hours if needed for nausea. 3 Active fluocinolone and shower cap 0.01 % oil Apply 1 oz topically 1 (one) time each day in the evening. 3 Active cholecalciferol (VITAMIN D-3) 50 mcg (2,000 unit) tablet Take 1 tablet (2,000 Units total) by mouth 1 (one) time each day. 2 Active ketoconazole 1 % shampoo Apply to wet hair, lather, and rinse thoroughly; repeat. Use every 3 to 4 days for up to 8 weeks 2 Active acetaminophen (TYLENOL) 325 mg tablet Take 2 tablets (650 mg total) by mouth every 6 (six) hours. 2 Active albuterol HFA (PROAIR HFA ; PROVENTIL HFA ; VENTOLIN HFA) 90 mcg/actuation inhaler Inhale 2 puffs by mouth every 6 (six) hours if needed for shortness of breath or wheezing (Cough). 2 Active cholecalciferol (VITAMIN D-3) 125 mcg (5,000 unit) capsule 1 Active buPROPion XL (WELLBUTRIN XL) 150 mg 24 hr tabletIndicatio ns:Tobacco dependency,Anxi ety,Depression, unspecified depression type Take 1 tablet (150 mg total) by mouth 1 (one) time each day in the morning. 90 tablet 3 5 Active busPIRone (BUSPAR) 5 mg tabletIndicatio ns:Anxiety,Yesi c attacks Take 1 tablet (5 mg total) by mouth 2 (two) times a day if needed (panic attacks). 90 tablet 3 5 11/06/19 26 Active buPROPion XL (WELLBUTRIN XL) 150 mg 24 hr tablet Take 1 tablet (150 mg total) by mouth 1 (one) time each day in the morning. 3 11/06/19 25 Discontinu ed(Reorder ) Active Problems Problem Noted Date Diagnosed Date Asthma 10/24/2024 Class 2 obesity with body ma ss index (BMI) of 35.0 to 35.9 in adult 10/24/2024 Uterine leiomyoma 03/04/2019 Depression 11/01/2011 Smoking 10/04/2010 Encounters Date Type Department Care Team Description 11/14/2024 9:15 AM EST Office Visit Bariatric Surgery - [address] [phone] Troy Rodriguez MD Class 3 severe obesity due to excess calories without serious comorbidity with body mass index (BMI) of 40.0 to 44.9 in adult ([facility]) (Primary Dx) 11/13/2024 10:45 AM EST Office Visit Bariatric Surgery - [address] [phone] Linda Murillo MD History of sleeve gastrectomy (Primary Dx); BMI 38.0-38.9,adult; Hx of hiatal hernia; Gastroesophageal reflux disease, unspecified whether esophagitis present 11/06/2024 1:15 PM EST Office Visit Internal Medicine - [address] [place] [phone] Colleen Chavis NP Anxiety (Primary Dx); Panic attacks; Depression, unspecified depression type; BMI 38.0-38.9,adult; Tobacco dependency from Last 3 Months Immunizations Name Administration Dates Next Due Influenza Quadravalent, MDCK , 0.5ml, with preservative (Flucelvax) 6mo and older 09/26/2019,08/25/2017 Influenza trivalent, with pr eservative (Fluzone; Afluria) 6mo and older 2011 Tdap Tetanus diptheria acell ular pertussis (Boostrix; Adacel) 7yo and older 08/25/2017 Surgical History Surgery Date Site/Laterality Comments SECTION 1990 PROCEDURE: HISTORICAL ; COMMENT: x1 TUBAL LIGATION PROCEDURE: HISTORICAL TUBAL LIGATION Medical History Medical History Date Comments Asthma DX:Asthma Historical Medical DX DX:Depress ion (disease); COMMENT: therapist: Marilu Family History Medical History Relation Name Comments Alcohol/Drug Father Other: old age Maternal Grandfather Other: cancer, unknown Mother Other: old age Paternal Grandmother Blindness Neg Hx Cataracts Neg Hx Glaucoma Neg Hx Macular degeneration Neg Hx Strabismus Neg Hx Relation Name Status Comments Father Maternal Grandfather Maternal Grandmother Mother Paternal Grandmother Social History Tobacco Use Types Packs/Day Years [...] on file Sexual Orientation Not on file Obstetrics History Last Filed Vital Signs Vital Sign Reading Time Taken Comments Blood Pressure 128/79 11/14/2024 9:17 AM EST Pulse 91 11/14/2024 9:17 AM EST Temperature 36.8 ??C (98.2 ??F) 11/14/2024 9:17 AM ES T Respiratory Rate - - Oxygen Saturation 95% 11/06/2024 1:05 PM EST Inhaled Oxygen Concentration - - Weight 90.3 kg (199 lb) 11/14/2024 9:17 AM EST Height 149.9 cm (4' 11 ) 11/14/2024 9:17 AM EST Body Mass Index 40.19 11/14/2024 9:17 AM EST Plan of Treatment Upcoming Encounters Date Type Department Care Team (Late st Contact Info) Description 11/20/2024 1:30 PM EST Telemedicine Bariatric Surgery - [place] 175 [facility] [address] [place] [phone] Eden Robles, QUANG [address] [address] 01/13/2025 8:30 AM EDT Appointment [facility] Xray [address] [place] [phone] 02/27/2025 2:45 PM EDT Office Visit Bariatric Surgery - [place] [address] [phone] Troy Rodriguez MD [address] [address] 03/07/2025 1:30 PM EDT Office Visit Internal Medicine - [place] 175 [facility] [address] [place] [phone] Colleen Chavis NP [address] [address] Health Maintenance Due Date Last Done Comments Breast Cancer Screening 1973 Hepatitis A Vaccines (1 of 2 - Risk 2-dose series) 1992 Hepatitis B Vaccines (1 of 3 - 19+ 3-dose series) 1992 Pneumococcal Vaccine: 50+ Years (1 of 2 - PCV) 1992 Pneumococcal Vaccine: Pediatrics (0 to 5 Years) and At-Risk Patients (6 to 64 Years) (1 of 2 - PCV) 1992 Colorectal Cancer Screening: Colonoscopy 09/04/2022 Depression Screening 09/04/2022 Social Influencers of Health Screening 09/04/2022 Zoster Vaccines (1 of 2) 2023 COVID-19 Vaccine ( - season) 2024 Influenza Vaccine (#1) 2024 , 08/25/2017, 2011 Cervical Cancer Screening: HPV 01/17/2027 01/17/2022 Cholesterol Screening (Lipid Panel) 06/08/2027 06/08/2022 DTaP,Tdap,and Td Vaccines (4 - Td or Tdap) 08/25/2027 08/25/2017, 08/25/2017, 11/06/2015, Additional history exists HIV Screening Completed 11/17/2016 Hepatitis C Screening Completed 11/17/2016 HIB Vaccines Aged Out No longer eligi ble based on patient's age to complete this topic HPV Vaccines Aged Out No longer eligi ble based on patient's age to complete this topic IPV Vaccines Aged Out No longer eligi ble based on patient's age to complete this topic MMR Vaccines Aged Out No longer eligi ble based on patient's age to complete this topic Meningococcal ACWY Vaccine Aged Out N o longer eligible based on patient's age to complete this topic Meningococcal B Vacine Aged Out No lo nger eligible based on patient's age to complete this topic RSV Immunization Patients Under 20 months Aged Out No longer eligible based on patient's age to complete this topic Varicella Vaccines Aged Out No longer eligible based on patient's age to complete this topic Procedures Procedure Name Priority Date/Time Associated Diagnosis Comments LIPID PANEL Routine 06/08/2022 HPV Routine 01/17/2022 HEPATITIS C SCREENING Routine 11/17/2016 HIV SCREENING Routine 11/17/2016 from Last 3 Months or Most Recently Relevant to Health Maintenance Results * Lipid panel (06/08/2022) LDL/HDL Ratio 2 0 - 4 Triglycerides 61 0 - 150 mg/dL Cholesterol 152 0 - 200 mg/dL HDL 73 >=40 mg/dL LDL Cholesterol 67 0 - 100 mg/dL Blood Venous blood specimen / Unknown Historical Provider LAB BLOOD ORDERABLES Gisel l Result * Cervical Cancer Screening: HPV (01/17/2022) Pathologist [facility] Cervical Cancer Screening: HPV Abstracted, Negative Historical Provider HEALTH MAINTENANCE Final Result * HIV Screening (11/17/2016) Pathologist [facility] HIV Screening Abstracted Historical Provider HEALTH MAINTENANCE Final Result * Hepatitis C Screening (11/17/2016) Pathologist [facility] Hepatitis C Screening Abstracted Historical Provider HEALTH MAINTENANCE Final Result from Last 3 Months or Most Recently Relevant to Health Maintenance Insurance Member Subscriber Plan / Payer (Ef fective 2019-Present) Name:Honey Carter Relation to Subscriber:Self Name:Honey Carter Payer ID:[id number] Group ID:[id number] Type:Not on file Address: [place] [address] [place] [id number] Care Teams Assistant Guest Services Manager Relationship Specialty Start Date End Date Jocelyn Guadalupe MD [address] [phone] PCP - General 11/03/22
== END 2024-11-19 14:16 | disposition home or self-care (01) ==
PROVIDERS: PCP Internal Medicine; Visit Provider Internal Medicine Rheumatology
DX: R25.2 Cramp and spasm (principal); M25.552 Pain in left hip; I88.1 Chronic lymphadenitis, except mesenteric
CPT/HCPCS: 99214; G2211

== ENCOUNTER 2024-11-19 13:35 | Outpatient (REF) | payer OTHER, SELFPAY ==
--- OUTSIDE RECORDS SUMMARY | 2024-11-19 18:03 | XMS_ITS | Clinical Summary ---
Author Organization 175 [facility] Address 175 [place] [address] Phone Care Team Providers Care Lamina Searcher Name Role Phone Jocelyn Guadalupe MD Primary [...] AM EST Office Visit Bariatric Surgery - [address] [phone] Troy Rodriguez MD Class 3 severe obesity due to excess calories without serious comorbidity with body mass index (BMI) of 40.0 to 44.9 in adult ([facility]) (Primary Dx) 11/13/2024 10:45 AM EST Office Visit Bariatric Surgery - [address] [phone] Linda Murillo MD History of sleeve gastrectomy (Primary Dx); BMI 38.0-38.9,adult; Hx of hiatal hernia; Gastroesophageal reflux disease, unspecified whether esophagitis present 11/06/2024 1:15 PM EST Office Visit Internal Medicine - [address] 200 [place] [phone] Colleen Chavis NP Anxiety (Primary Dx); Panic [...] 1:30 PM EST Telemedicine Bariatric Surgery - [place] 175 [facility] 120 [place] [phone] Eden Robles, QUANG [address] [address] 01/13/2025 8:30 AM EDT Appointment [facility] Xray [address] [place] [phone] 02/27/2025 2:45 PM EDT Office Visit Bariatric Surgery - [place] [address] [phone] Troy Rodriguez MD [address] [address] 03/07/2025 1:30 PM EDT Office Visit Internal Medicine - [place] 175 [facility] 200 [place] [phone] Colleen Chavis NP [address] [address] Health Maintenance Due Date Last Done Comments [...] * Cervical Cancer Screening: HPV (01/17/2022) Pathologist [facility] Cervical Cancer Screening: HPV Abstracted, Negative Historical Provider HEALTH MAINTENANCE Final Result * HIV Screening (11/17/2016) Pathologist [facility] HIV Screening Abstracted Historical Provider HEALTH MAINTENANCE Final Result * Hepatitis C Screening (11/17/2016) Pathologist [facility] Hepatitis C Screening Abstracted Historical Provider HEALTH MAINTENANCE Final Result from Last 3 Months or Most Recently Relevant to Health Maintenance Insurance Member Subscriber Plan / Payer (Ef fective 2019-Present) Name:Honey Carter Relation to Subscriber:Self Name:Honey Carter Payer ID:[id number] Group ID:[id number] Type:Not on file Address: [place] [address] [address] [id number] Care Teams Lamina Searcher Relationship Specialty Start Date End Date Jocelyn Guadalupe MD [address] [phone] PCP - General 11/03/22
--- OUTSIDE RECORDS SUMMARY | 2024-11-19 18:03 | XMS_ITS | Encounter Summary ---
Author Organization [facility] Address [address] [place] [address] Care Team Providers Care Derrick Operator Name Role Phone Jocelyn Guadalupe MD Primary Care Provider [phone] Reason for Visit * Reason Comments Follow-up Encounter Details Date Type Department Care Team ([facility] st Contact Info) Description 11/14/2024 9:15 AM EST Office Visit Bariatric Surgery - [place] 175 [facility] [address] [place] [phone] Troy Rodriguez MD 175 [facility] [place] [address] [place] [address] Class 3 severe obesity due to excess [...] 1:30 PM EST Telemedicine Bariatric Surgery - [place] [address] [phone] [address] [address] 01/13/2025 8:30 AM EDT Appointment [facility] Xray [address] [place] [phone] 02/27/2025 2:45 PM EDT Office Visit Bariatric Surgery - [place] [address] [phone] Troy Rodriguez MD [address] [address] 03/07/2025 1:30 PM EDT Office Visit Internal Medicine - [place] [address] [phone] Colleen Chavis NP [address] [address] documented as of this encounter Visit Diagnoses Diagnosis Class 3 severe obesity due to excess calories without serious comorbidity with body mass index (BMI) of 40.0 to 44.9 in adult ([facility])- Primary documented in this encounter Care Teams Derrick Operator Relationship Specialty Start Date End Date Jocelyn Guadalupe MD [address] [place] [phone] PCP - General 11/03/22 documented as of this encounter
--- OUTSIDE RECORDS SUMMARY | 2024-11-19 18:04 | XMS_ITS | Encounter Summary ---
Author Organization [facility] Address [address] [place] [address] Care Team Providers Care Property Consultant Name Role Phone Jocelyn Guadalupe MD Primary Care Provider [phone] Reason for Referral * Imaging (Routine) - Authorized Specialty Diagnoses / Procedures Referred By Ace woodson Referred To Contact Radiology Diagnoses BMI 38.0-38.9,adult History of sleeve gastrectomy Hx of hiatal hernia Gastroesophageal reflux disease, unspecified whether esophagitis present Procedures XR UGI w Single Contrast Linda Murillo MD [address] [phone] Phone: tel: fax: [facility] CT Scan [address] [place] [address] Phone: tel: Referral ID Status Reason Start Date Expiration Date V isits Requested Visits Authorized [id number] Authorized 11/13/2024 11/13/2025 1 1 Reason for Visit * Reason Comments Consult Revision * Consultation (Routine) - Closed Specialty Diagnoses / Procedures Referred By Ace woodson Referred To Contact Family Nutrition Services / Bariatrics Diagnoses BMI 38.0-38.9,adult Colleen Chavis NP 175 [facility] 200 [place] [address] Phone: tel: fax: Bariatric Surgery - [place] 175 [facility] 120 [place] [address] Phone: tel: fax: Referral ID Status Reason Start Date Expiration Date V isits Requested Visits Authorized [id number] Closed Specialty Services Required 11/06/2024 11/06/2025 1 1 Encounter Details Date Type Department Care Team (Late st Contact Info) Description 11/13/2024 10:45 AM EST Office Visit Bariatric Surgery - [place] 175 [facility] [address] [place] [address] Linda Murillo MD [address] [place] [address] [place] [address] History of sleeve gastrectomy (Primary [...] They will be required to see the associate editor and comply with the nutritional component of [...] 1:30 PM EST Telemedicine Bariatric Surgery - [place] [address] [phone] Eden Robles, QUANG [address] [address] 01/13/2025 8:30 AM EDT Appointment [facility] Xray [address] [place] [phone] 02/27/2025 2:45 PM EDT Office Visit Bariatric Surgery - [place] [address] [phone] Troy Rodriguez MD [address] [address] 03/07/2025 1:30 PM EDT Office Visit Internal Medicine - [place] [address] [phone] Colleen Chavis NP [address] [address] Scheduled Orders Name Type Priority Associated Diagnoses [...] 025 documented in this encounter Care Teams Property Consultant Relationship Specialty Start Date End Date Jocelyn Guadalupe MD 175 [facility] 200 [place] [phone] PCP - General 11/03/22 documented as of this encounter
--- OUTSIDE RECORDS SUMMARY | 2024-11-19 18:04 | XMS_ITS | Encounter Summary ---
Author Organization [facility] Address [address] [place] [phone] Care Team Providers Care Stroke Coordinator Name Role Phone Jocelyn Guadalupe MD Primary Care Provider [phone] Reason for Referral * Consultation (Routine) - Closed Specialty Diagnoses / Procedures Referred By Ace woodson Referred To Contact Family Nutrition Services / Bariatrics Diagnoses BMI 38.0-38.9,adult Colleen Chavis NP 175 [facility] 200 [place] [address] Phone: tel: fax: Bariatric Surgery - [place] 175 [facility] 120 [place] [address] Phone: tel: fax: Referral ID Status Reason Start Date Expiration Date V isits Requested Visits Authorized [id number] Closed Specialty Services Required 11/06/2024 11/06/2025 1 1 Reason for Visit * Reason Comments Anxiety Encounter Details Date Type Department Care Team (Late st Contact Info) Description 11/06/2024 1:15 PM EST Office Visit Internal Medicine - [place] 175 [facility] 200 [place] [phone] Colleen Chavis NP 175 [facility] 200 [place] [address] Anxiety (Primary Dx); Panic attacks; Depression, unspecified [...] resources for additional support: National tobacco quitline: 7-465-SEIP-NOW ( ). SmokefreeTXT is a free text [...] 1:30 PM EST Telemedicine Bariatric Surgery - [place] [address] [phone] [address] [address] 01/13/2025 8:30 AM EDT Appointment [facility] Xray [address] [place] [phone] 02/27/2025 2:45 PM EDT Office Visit Bariatric Surgery - [place] [address] [phone] Troy Rodriguez MD [address] [address] 03/07/2025 1:30 PM EDT Office Visit Internal Medicine - [place] [address] [phone] Colleen Chavis NP [address] [address] Scheduled Referrals Name Type Priority Associated Diagnoses [...] documented as of this encounter Care Teams Stroke Coordinator Relationship Specialty Start Date End Date Chag[place], Jocelyn D, MD [address] [phone] PCP - General 11/03/22 documented as of this encounter
[2024-11-19 18:29] LABS: Albumin Level 3.9 g/dL (3.5-5.0); Calcium 9.3 mg/dL (8.4-10.2); Magnesium 2.2 mg/dL (1.6-2.6)
== END 2024-11-19 13:36 | disposition home or self-care (01) ==
LOC: HO.HKASLDS 13:35
PROVIDERS: PCP Internal Medicine; Visit Provider Internal Medicine Rheumatology
DX: I88.1 Chronic lymphadenitis, except mesenteric (principal); R25.2 Cramp and spasm; M25.552 Pain in left hip
CPT/HCPCS: 36415; 82040; 82310; 83735; 84132; 99212

== ENCOUNTER 2024-12-19 09:33 | Outpatient (AMB) | payer OTHER, SELFPAY ==
[2024-12-19 09:35] VITALS: BP 110/90; PULSE 94; O2SAT 98; BMI 39.6
--- NOTE | 2024-12-19 09:35 | MHC.OFFVIS ---
Vital Signs 12/19/24 09:35 Height 5 ft Weight 203 lb BMI 39.6 BP 110/90 H Blood Pressure Location Lt brachial Position Sitting Pulse 94 Pulse Source Pulse Oximeter Pulse Oximetry (%) 98 Oxygen Delivery Method Room Air Intake Visit Reasons: 1 Month Intake Note: Patient presents for lymphadenopathy. Accompanied by: Self / Same As Patient Allergies No Known Allergies [No Known Allergies*] Allergy (Verified 12/19/24 09:37) HPI HPI 1 Month: Details: she went to [facility] ER for neck pain. X-ray showed muscle spasm. She was referred to PT but did not start. Skin on left side of neck is numb. Constant left hip pain. [facility] Medical History Hiatal hernia Cardiomyopathy Asthma Depression Lymphadenitis, chronic Surgical History Hx of hernia repair Hx of tubal ligation Hx of section History of sleeve gastrectomy Family History Mother Cancer Father Alcohol abuse Substance abuse Brother No problems noted. 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 Respiratory: clear to auscultation bilaterally. Good respiratory effort Skin: No lesions seen MSK: Tender to palpate left trochanteric bursa. No groin tenderness. She has good external rotation of left hip but with pain. Tender mid cervical spine paraspinal and trapezius. Normal cervical ROM. Office Procedures AMB Joint Injection/Aspiration Joint Injection/Aspiration Details: Left trochanteric bursa Prep: site was prepped using aseptic technique Injected: 40 mg of, Kenalog, with 1 mL of and 1% plain lidocaine using 25 gauge 3-1/2 inch needle Procedure: The patient tolerated the procedure well. Postprocedure protocol was discussed with patient. Coding 43714 - Large joint Procedure code (CPT) selection complete Office Meds lidocaine (PF) 10 mg/mL (1 %) injection solution Performing Provider: Jose Moses MD [place] [facility] Administered by: Jose Moses MD on 12/19/24 10:02 Dose Route Admin Location Dispensed Lot Number Expiration Date [facility] Senior Staff Psychologist 10 mg Infiltration 2 mL [id number] [facility] Kenalog 40 mg/mL suspension for injection Performing Provider: Jose Moses MD Performing [place] [facility] Administered by: Jose Moses MD on 12/19/24 10:02 Dose Route Admin Location Dispensed Lot Number Expiration Date [facility] Senior Staff Psychologist 40 mg intrabursal 1 mL AP [id number] [employer] Assessment & Plan Assessment & Plan (1) Myofascial neck pain: Comment: Discussed diagnosis and management Code(s): M54.2 - Cervicalgia Category: Medical Plan: PT ordered We discussed the importance of having a good posture and core strengthening Apply heat to neck Try lidocaine patch Requesting C-spine x-ray from [facility] Return to clinic in 3 months (2) Trochanteric bursitis, left hip: Code(s): M70.62 - Trochanteric bursitis, left hip Category: Medical Plan: Patient received left trochanteric bursa injection Return to clinic in 3 months (3) Hand or foot spasms: Comment: Improved with hydration. Electrolytes normal. Code(s): R25.2 - Cramp and spasm Category: Medical Plan: No further workup is needed (4) Hip pain: Comment: Left groin pain with left trochanteric bursa tenderness. She has left trochanteric bursitis. She has not done x-ray for evaluation of hip pathology contributing to her pain. Code(s): M25.559 - Pain in unspecified hip Category: Medical Qualifiers: Laterality: left Qualified Code(s): M25.552 - Pain in left hip Plan: X-ray left hip ordered last visit. I encouraged her to have x-ray done soon Patient received left trochanteric bursa cortisone injection this visit Return to clinic in 3 months (5) Lymphadenitis, chronic: Comment: In April of 2022 she started having fevers up to 103, diffuse lymphadenopathy, fatigue, weight loss, anorexia, abdominal pain, and bumpy skin rash, significantly elevated inflammatory markers, mild leukopenia, CT chest showed axillary lymphadenopathy small pleural effusions and no infiltrates, CT abdomen unremarkable. Further workup revealed low titer positive anti Scl 70. Patient has no features of scleroderma or any other signs or symptoms suggestive of connective tissue disease. She continues to follow up with Oncology without exacerbation of lymphadenopathy. Low clinical suspicion for connective tissue disease. Code(s): I88.1 - Chronic lymphadenitis, except mesenteric Category: Medical Plan: No further rheumatology workup is recommended Orders: Orders PT Evaluation and Treatment Today M54.2 - Cervicalgia AMB Joint Injection/Aspiration Today M70.62 - Trochanteric bursitis, left hip Medications: New Kenalog (triamcinolone acetonide) 40 mg intrabursal ONCE 1 mL 0RF NS M70.62 - Trochanteric bursitis, left hip lidocaine (PF) 10 mg Infiltration ONCE 1 mL 0RF M70.62 - Trochanteric bursitis, left hip Coding Level of Care Code Est Pt Level 4 (94821) Complex EM visit Add On G2211 Diagnoses Myofascial neck pain M54.2 Trochanteric bursitis, left hip M70.62 Hand or foot spasms R25.2 Pain of left hip M25.552 Laterality: left Lymphadenitis, chronic I88.1 CPT Codes Coding - 11329 Large joint: 17532 - Large joint ([id number])
== END 2024-12-19 09:55 | disposition home or self-care (01) ==
LOC: HO.RHES 09:33
PROVIDERS: PCP Internal Medicine; Visit Provider Internal Medicine Rheumatology
DX: M54.2 Cervicalgia (principal); M70.62 Trochanteric bursitis, left hip; R25.2 Cramp and spasm; M25.552 Pain in left hip; I88.1 Chronic lymphadenitis, except mesenteric
CPT/HCPCS: 20610; 99214

== ENCOUNTER → 2024-12-19 09:33 | Outpatient (BNVA) | payer OTHER, SELFPAY | PROVIDERS: PCP Internal Medicine; Visit Provider Internal Medicine Rheumatology | DX: M70.62 Trochanteric bursitis, left hip (principal); I88.1 Chronic lymphadenitis, except mesenteric; M54.2 Cervicalgia; R25.2 Cramp and spasm | CPT/HCPCS: 20610; 99212; J2003; J3300 ==